=== PATIENT | male | born 1945 | race Caucasian/White ===

== ENCOUNTER → 2018-04-10 | Outpatient (CLI) | payer MEDICARE, OTHER ==
--- NOTE | 2018-04-10 10:43 | Diagnostic Imaging Report ---
INDICATION: CHRONIC OBSTRUCTIVE PULMONARY DISEASE COMPARISON: None. FINDINGS: Frontal and lateral radiographic views of the chest were obtained and show diffuse coarse prominence of the pulmonary interstitium. There are scattered more focal confluent opacities within both lower lung ryan. No large effusion or pneumothorax is seen on either side. Cardiac silhouette and pulmonary vasculature is within normal limits. Right-sided Port-A-Cath is noted with tip just below the cavoatrial junction. Bony structures show no gross acute abnormalities. IMPRESSION: 1. Diffuse coarse interstitial opacities, which may be on the basis of underlying chronic interstitial lung disease. 2. Few scattered patchy alveolar opacities within both lower lung ryan. There is no prior available for comparison. Findings may be chronic as well, but may also be on the basis of superimposed acute infiltrate. Followup is recommended. Dictated by: Dictated on workstation # [id number]
== END ==
LOC: RAD FS 10:09
PROVIDERS: ATTEND Family Medicine
DX: J44.9 Chronic obstructive pulmonary disease, unspecified (principal)
CPT/HCPCS: 71046

== ENCOUNTER 2018-08-20 18:23 | Emergency (ER) | payer MEDICARE, OTHER ==
[~2018-08-20] VITALS: Ht 167.6 cm; Wt 83.0 kg
[2018-08-20] MEDS ORDERED: morphine INJ 10 MG/ML 1ML (SYR OR VIAL) IVP STA (18:29)
[2018-08-20] MEDS ORDERED: ANTACID SUSP 30 ML UDC (MYLANTA) PO ONE (18:30)
[2018-08-20] MEDS ORDERED: ONDANSETRON 4 MG/2 ML (SDV) Z0FRAN IVP ONE (18:30)
--- NOTE | 2018-08-20 18:33 | ED General ---
General Stated Complaint: NAUSEA,CHEST PAIN,BACK PAIN History of Present Illness Date Seen by Provider: Aug 20, 2018 Time Seen by Provider: 18:33 Initial Comments Patient presenting to the emergency department for evaluation of chest pain abdominal pain and back pain that started this morning when he woke up at 7 that he said was mild but worsened persistently throughout today and now he says it is a 10 out of 10 and is causing him nausea. Patient had to call EMS. He appears uncomfortable but is nontoxic with no obvious ischemic changes on the EKG. 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 He denies any heart problems or heart failure. Allergies and Home Medications Allergies Coded Allergies: aztreonam (Unverified Adverse Reaction, Unknown, 08/20/18) piperacillin (Unverified Adverse Reaction, Unknown, 08/20/18) tazobactam (Unverified Adverse Reaction, Unknown, 08/20/18) Uncoded Allergies: CEFFEPIME (Adverse Reaction, Unknown, 08/20/18) MEROPENUM (Adverse Reaction, Unknown, 08/20/18) PENICILLIN (Adverse Reaction, Unknown, 08/20/18) Patient Home Medication List Home Medication List Reviewed: Yes Review of Systems Review of Systems Constitutional: no symptoms reported EENTM: no symptoms reported Respiratory: short of breath Cardiovascular: chest pain Gastrointestinal: abdominal pain, nausea; No vomiting Genitourinary: no symptoms reported Musculoskeletal: back pain Skin: no symptoms reported Psychiatric/Neurological: No Symptoms Reported All Other Systems Reviewed Negative Unless Noted: Yes Past Ufpikwk-Vgsfiw-Eohqad Hx Patient Social History Recent Foreign Travel: No Contact w/Someone Who Travel: No Physical Exam Vital Signs Vital Signs - First Documented Capillary Refill : Height, Weight, BMI Height: '" Weight: lbs. oz. kg; BMI Method: General Appearance: WD/WN, Moderate Distress Eyes: Bilateral Eye Normal Inspection HEENT: PERRL/EOMI Neck: Full Range of Motion, Supple Respiratory: Lungs Clear, No Respiratory Distress Cardiovascular: Regular Rate, Rhythm, No Edema, Tachycardia Gastrointestinal: Soft, Tenderness (across upper abdomen with no rebound or guarding) Back: Normal Inspection Extremity: Normal Capillary Refill Neurologic/Psychiatric: Alert, Oriented x3 Skin: Normal Color, Warm/Dry Progress/Results/Core Measures Suspected Sepsis SIRS Temperature: Pulse: Respiratory Rate: Laboratory Tests 08/20/18 18:35: White Blood Count 32.8*H Blood Pressure / Mean: Laboratory Tests 08/20/18 18:35: Creatinine 0.85, INR Comment 0.9, Platelet Count 411H, Total Bilirubin 0.3 Results/Orders Lab Results Laboratory Tests Test 08/20/18 18:35 08/20/18 18:52 Range/Units White Blood Count 32.8 *H 4.3-11.0 10^3/uL Red Blood Count 4.75 4.35-5.85 10^6/uL Hemoglobin 12.5 L 13.3-17.7 G/DL Hematocrit 41 40-54 % Mean Corpuscular Volume 87 80-99 FL Mean Corpuscular Hemoglobin 26 25-34 PG Mean Corpuscular Hemoglobin Concent 30 L 32-36 G/DL Red Cell Distribution Width 14.4 10.0-14.5 % Platelet Count 411 H 130-400 10^3/uL Mean Platelet Volume 9.9 7.4-10.4 FL Neutrophils (%) (Auto) 89 H 42-75 % Lymphocytes (%) (Auto) 4 L 12-44 % Monocytes (%) (Auto) 5 0-12 % Eosinophils (%) (Auto) 0 0-10 % Basophils (%) (Auto) 0 0-10 % Neutrophils # (Auto) 29.3 H 1.8-7.8 X 10^3 Lymphocytes # (Auto) 1.4 1.0-4.0 X 10^3 Monocytes # (Auto) 1.7 H 0.0-1.0 X 10^3 Eosinophils # (Auto) 0.1 0.0-0.3 10^3/uL Basophils # (Auto) 0.1 0.0-0.1 10^3/uL Neutrophils % (Manual) 88 % Lymphocytes % (Manual) 8 % Monocytes % (Manual) 3 % Eosinophils % (Manual) 0 % Basophils % (Manual) 0 % Band Neutrophils 1 % Prothrombin Time 12.8 12.2-14.7 SEC INR Comment 0.9 0.8-1.4 Activated Partial Thromboplast Time 25 24-35 SEC Sodium Level 136 135-145 MMOL/L Potassium Level 4.4 3.6-5.0 MMOL/L Chloride Level 96 L 98-107 MMOL/L Carbon Dioxide Level 29 21-32 MMOL/L Anion Gap 11 5-14 MMOL/L Blood Urea Nitrogen 16 7-18 MG/DL Creatinine 0.85 0.60-1.30 MG/DL Estimat Glomerular Filtration Rate > 60 BUN/Creatinine Ratio 19 Glucose Level 138 H 70-105 MG/DL Calcium Level 9.8 8.5-10.1 MG/DL Corrected Calcium 9.8 8.5-10.1 MG/DL Magnesium Level 1.9 1.8-2.4 MG/DL Total Bilirubin 0.3 0.1-1.0 MG/DL Aspartate Amino Transf (AST/SGOT) 17 5-34 U/L Alanine Aminotransferase (ALT/SGPT) 23 0-55 U/L Alkaline Phosphatase 71 40-136 U/L Troponin I < 0.30 <0.30 NG/ML Pro-B-Type Natriuretic Peptide 127.9 H <75.0 PG/ML Total Protein 7.9 6.4-8.2 GM/DL Albumin 4.0 3.2-4.5 GM/DL Lipase 45 8-78 U/L Urine Color YELLOW Urine Clarity CLEAR Urine pH 6.0 5-9 Urine Specific Olga 1.020 1.016-1.022 Urine Protein NEGATIVE NEGATIVE Urine Glucose (UA) NEGATIVE NEGATIVE Urine Ketones NEGATIVE NEGATIVE Urine Nitrite NEGATIVE NEGATIVE Urine Bilirubin NEGATIVE NEGATIVE Urine Urobilinogen 0.2 NORMAL MG/DL Urine Leukocyte Esterase NEGATIVE NEGATIVE Urine RBC (Auto) NEGATIVE NEGATIVE Urine RBC NONE /HPF Urine WBC RARE /HPF Urine Squamous Epithelial Cells NONE /HPF Urine Crystals NONE /LPF Urine Bacteria NEGATIVE /HPF Urine Casts NONE /LPF Urine Mucus SMALL H /LPF Urine Culture Indicated NO My Orders Orders - SHANTHI RICHARDS DO Cbc With Automated Diff (08/20/18 18:29) Comprehensive Metabolic Panel (08/20/18 18:29) Lipase (08/20/18 18:29) Magnesium (08/20/18 18:29) Partial Thromboplastin Time (08/20/18 18:29) Protime With Inr (08/20/18 18:29) Probnp Fs (08/20/18 18:29) Troponin I (08/20/18 18:29) Ua Culture If Indicated (08/20/18 18:29) Lactic Acid Analyzer (08/20/18 18:29) Ekg Tracing (08/20/18 18:29) Ondansetron Injection (Zofran Injectio (08/20/18 18:30) Morphine Injection (Morphine Injection (08/20/18 18:29) Antacid Suspension (Mylanta Suspension (08/20/18 18:30) Ct Anette Chest/Noang Abd-Pelv W (08/20/18 18:29) Aspirin Chewable Tablet (Baby Aspirin Ch (08/20/18 19:00) Manual Differential (08/20/18 18:35) Iohexol Injection (Omnipaque 350 Mg/Ml 1 (08/20/18 19:45) Received Contrast (Hold Metformin- Contr (08/20/18 19:45) Sodium Chloride Flush (Catheter Flush Sy (08/20/18 19:45) Ns (Ivpb) (Sodium Chloride 0.9% Ivpb Bag (08/20/18 19:45) Pantoprazole Injection (Protonix Injecti (08/20/18 20:00) Fentanyl Injection (Sublimaze Injection (08/20/18 20:00) Levofloxacin 750 Mg/150 Ml Iv (Levaquin (08/20/18 20:45) Blood Culture (08/20/18 20:47) Lactic Acid Analyzer (08/20/18 20:47) Medications Given in ED Current Medications Medications Dose Ordered Sig/Rae Route Start Time Stop Time Status Last Admin Dose Admin Al Hydrox/Mg Hydrox/Simethicone 30 ml ONCE ONCE PO 08/20/18 18:30 08/20/18 18:34 DC 08/20/18 18:41 30 ML Aspirin 324 mg ONCE ONCE PO 08/20/18 19:00 08/20/18 19:01 DC 08/20/18 19:18 324 MG Fentanyl Citrate 50 mcg ONCE ONCE IVP 08/20/18 20:00 08/20/18 20:01 DC 08/20/18 19:55 50 MCG Iohexol 150 ml ONCE ONCE IV 08/20/18 19:45 08/20/18 19:46 DC 08/20/18 19:43 125 ML Ondansetron HCl 4 mg ONCE ONCE IVP 08/20/18 18:30 08/20/18 18:34 DC 08/20/18 18:40 4 MG Pantoprazole 40 mg ONCE ONCE IV 08/20/18 20:00 08/20/18 20:01 DC 08/20/18 19:55 40 MG Sodium Chloride 10 ml NEEDED PRN IV 08/20/18 19:45 08/20/18 19:43 10 ML Sodium Chloride 100 ml ONCE ONCE IV 08/20/18 19:45 08/20/18 19:46 DC 08/20/18 19:43 80 ML Vital Signs/I&O 08/20/18 08/20/18 18:23 18:23 Temp 97.4 Pulse 91 Resp 20 B/P (MAP) 116/56 (76) Pulse Ox 95 O2 Delivery Nasal Cannula Nasal Cannula O2 Flow Rate 2.00 2.0 Capillary Refill : Progress Note : Progress Note Patient with a large differential at this time but there is no Audit Machine Operator criteria met. He will get labs and imaging treat symptoms and reassess. Patient worked up and has tachycardia with leukocytosis and an infectious source of lung. Technically he meets sepsis criteria say he was started on Levaquin. He is not meet any severe sepsis criteria as he is not hypotensive. I told patient he should be admitted to the hospital and he is requesting to go to [facility] as his travel registered nurse icu and follow him there. I spoke to [facility] and they were willing to accept patient. Patient's pain is improved and he appears to have normal vital signs except for mild tachycardia so he will be transferred in stable condition. Departure Impression Primary Impression: Sepsis Qualified Codes: A41.9 - Sepsis, unspecified organism Additional Impression: Pneumonia Qualified Codes: J18.9 - Pneumonia, unspecified organism Disposition: XFER SHT-TRM HOSP Condition: Stable Transfer Method of Transfer: EMS Departure-Patient Inst. Referrals: JOVANNA VALIENTE MD (PCP/Family) Primary Care Physician SHANTHI RICHARDS DO Aug 20, 2018 18:33
[2018-08-20 18:52] LABS: HEMATOCRIT 41 % (40-54); HEMOGLOBIN 12.5 G/DL (13.3-17.7); MEAN CORPUSCULAR HEMOGLOBIN 26 PG (25-34); MEAN CORPUSCULAR VOLUME 87 FL (80-99); WHITE BLOOD COUNT 32.8 10^3/uL (4.3-11.0)
[2018-08-20 18:53] LABS: BASOPHILS % (AUTO) 0 % (0-10); EOSINOPHILS # (AUTO) 0.1 10^3/uL (0.0-0.3); EOSINOPHILS % (AUTO) 0 % (0-10); LYMPHOCYTES # (AUTO) 1.4 X 10^3 (1.0-4.0); LYMPHOCYTES % (AUTO) 4 % (12-44); MEAN CORPUSCULAR HGB CONC 30 G/DL (32-36); MEAN PLATELET VOLUME 9.9 FL (7.4-10.4); MONOCYTES # (AUTO) 1.7 X 10^3 (0.0-1.0); MONOCYTES % (AUTO) 5 % (0-12); NEUTROPHILS # (AUTO) 29.3 X 10^3 (1.8-7.8); NEUTROPHILS % (AUTO) 89 % (42-75); PLATELET COUNT 411 10^3/uL (130-400); RED CELL DISTRIBUTION WIDTH 14.4 % (10.0-14.5)
[2018-08-20 18:54] LABS: BASOPHILS # (AUTO) 0.1 10^3/uL (0.0-0.1)
--- NOTE | 2018-08-20 18:55 | NUR ---
Report to Una SALAZAR.
[2018-08-20] MEDS ORDERED: ASPIRIN 81 MG CHEW (CHILDREN'S ASA) PO ONE (19:00)
[2018-08-20 19:04] LABS: INR 0.9 (0.8-1.4); PROTHROMBIN TIME PATIENT 12.8 SEC (12.2-14.7)
[2018-08-20 19:11] LABS: BAND NEUTROPHILS 1 %; BASOPHILS % (MANUAL) 0 %; EOSINOPHILS % (MANUAL) 0 %; LYMPHOCYTES % (MANUAL) 8 %; MONOCYTES % (MANUAL) 3 %; NEUTROPHILS % (MANUAL) 88 %
[2018-08-20 19:12] LABS: BUN/CREATININE RATIO 19; CALCIUM 9.8 MG/DL (8.5-10.1); CARBON DIOXIDE 29 MMOL/L (21-32); CHLORIDE 96 MMOL/L (98-107); CREATININE SERUM 0.85 MG/DL (0.60-1.30); GFR ESTIMATED > 60; GLUCOSE 138 MG/DL (70-105); MAGNESIUM 1.9 MG/DL (1.8-2.4); POTASSIUM 4.4 MMOL/L (3.6-5.0); SODIUM 136 MMOL/L (135-145)
[2018-08-20 19:13] LABS: ALANINE AMINOTRANSFERASE 23 U/L (0-55); ALKALINE PHOSPHATASE 71 U/L (40-136); BILIRUBIN,TOTAL 0.3 MG/DL (0.1-1.0); LIPASE 45 U/L (8-78); TOTAL PROTEIN 7.9 GM/DL (6.4-8.2)
[2018-08-20 19:27] LABS: BACTERIA,URINE NEGATIVE /HPF; BILIRUBIN,URINE NEGATIVE (NEGATIVE); CLARITY,URINE CLEAR; COLOR,URINE YELLOW; GLUCOSE, URINE (UA) NEGATIVE (NEGATIVE); KETONES,URINE NEGATIVE (NEGATIVE); LEUKOCYTE ESTERASE ,URINE NEGATIVE (NEGATIVE); NITRITE,URINE NEGATIVE (NEGATIVE); PROTEIN,URINE NEGATIVE (NEGATIVE); UROBILINOGEN,URINE 0.2 MG/DL (NORMAL); WBC,URINE RARE /HPF
[2018-08-20] MEDS ORDERED: NS 100 ML (IVPB) BAG IV ONE (19:45)
[2018-08-20] MEDS ORDERED: IOHEXOL 350 MG/ML 150 ML (OMNIPAQUE 350) VIAL IV ONE (19:45)
[2018-08-20] MEDS ORDERED: CATHETER FLUSH 10 ML SYR IV PRN (19:45)
[2018-08-20] MEDS ORDERED: HOLD METFORMIN - RECEIVED CONTRAST 20 ML VIAL IV SCH (19:45)
[2018-08-20] MEDS ORDERED: fentaNYL INJECTION 100 MCG/2 ML AMP IVP ONE (20:00)
[2018-08-20] MEDS ORDERED: PANTOPRAZOLE 40 MG (PROTONIX) VIAL IV ONE (20:00)
--- NOTE | 2018-08-20 20:27 | Diagnostic Imaging Report ---
INDICATION: Shortness of breath. TECHNIQUE: Pre-and postcontrast axial imaging of the chest was performed utilizing CT angiography protocol. Post contrast axial imaging of the abdomen and pelvis was also performed. Multiplanar 3D and MIP reformations are also performed. CT ANGIOGRAM CHEST: The thoracic aorta is normal caliber. No dissection is seen. Pulmonary arterial system is without thromboembolism. No filling defects are seen within central, lobar or segmental branches. There is some parenchymal consolidation in the right middle lobe and lingula with some associated bronchiectasis. There is bilateral lower lobe consolidation as well, left greater with associated bronchiectasis. Interlobular septal thickening is seen throughout both lungs, as well. No discrete mass is identified. No definite pericardial or pleural fluid is seen. No axillary lymphadenopathy is identified. Mildly prominent lymph nodes in the mediastinum right paratracheal and subcarinal regions noted. Sharona are unremarkable. IMPRESSION: 1. No evidence of pulmonary embolism or thoracic aortic dissection. 2. Bilateral infiltrates with associated bronchiectasis, as described. There are generalized interstitial changes which may be chronic. CT ABDOMEN AND PELVIS: There is generalized low density throughout the liver consistent with hepatic abscesses. No discrete liver mass is seen. Gallbladder appears to be surgically absent. There is no biliary ductal dilatation. There is some questionable inflammatory stranding adjacent to the pancreatic head and second portion of the duodenum. There is normal enhancement to the pancreas. No peripancreatic fluid collection is seen. The spleen is unremarkable. No adrenal mass is seen. The kidneys are without hydronephrosis. Aorta is non-aneurysmal. Bowel loops are normal caliber. There is no obstruction. There is diverticulosis of the sigmoid but no evidence of acute diverticulitis. The prostate is enlarged. The bladder is diffusely thick-walled. IMPRESSION: 1. Hepatic steatosis. 2. Uncomplicated diverticulosis. 3. Mild inflammatory changes adjacent to the pancreatic head and second portion of the duodenum. This could be owing to focal pancreatitis versus peptic ulcer disease. Correlation with amylase and lipase levels would be useful. No peripancreatic fluid collection or pseudocyst is seen. 4. Prostatomegaly. Dictated by: Dictated on workstation # [id number]
[2018-08-20] MEDS ORDERED: LEVOFLOXACIN 750 MG/150 ML IV 150 ML IV ONE (20:45)
[2018-08-20] MEDS ORDERED: CODE118S4 (21:02)
[2018-08-20] MEDS ORDERED: COLE1TAB (21:02)
[2018-08-20] MEDS ORDERED: RANI150T11 (21:02)
[2018-08-20] MEDS ORDERED: UMEC62.5 (21:02)
[2018-08-20] MEDS ORDERED: SERT50TA9 (21:02)
[2018-08-20] MEDS ORDERED: PRD10T (21:02)
[2018-08-20] MEDS ORDERED: SODI4VIA (21:02)
[2018-08-20 22:25] VITALS: BP 110/56
--- NOTE | 2018-08-20 22:25 | NUR ---
ems here for transport
--- OUTSIDE RECORDS SUMMARY | 2018-08-21 02:04 | XMS REPORT | Continuity of Care Document ---
Author Organization Unknown Address Unknown Allergies Active Description Code Type Severity Reaction Onset Reported/Identified Relationship to Patient Clinical Status Yes aztreonam [id number] Drug Allergy Unknown N/A 08/20/2018 Yes CEFFEPIME CEFFEPIME Unknown N/A 08/20/2018 Yes MEROPENUM MEROPENUM Unknown N/A 08/20/2018 Yes No Known Drug Allergies [id number] Drug Allergy Unknown N/A 08/20/2018 Yes PENICILLIN PENICILLIN Unknown N/A 08/20/2018 Yes piperacillin [id number] Drug Allergy Unknown N/A 08/20/2018 Yes tazobactam [id number] Drug Allergy Unknown N/A 08/20/2018 Medications There is no data. Problems Date Dx Coded Attending Type Code Diagnosis Diagnosed By 01/30/2013 NOEL SOMMER MD Ot 494.0 BRONCHIECTASIS W/O ACUTE EXACERBATION 05/01/2013 NOEL SOMMER MD Ot 494.0 BRONCHIECTASIS W/O ACUTE EXACERBATION 04/10/2018 Ot 494.0 BRONCHIECTASIS W/O ACUTE EXACERBATION 05/04/2018 ROCCO MCKEON, JOVANNA Coronado Ot J44.9 CHRONIC OBSTRUCTIVE PULMONARY DISEASE, U 08/20/2018 Ot 494.0 BRONCHIECTASIS W/O ACUTE EXACERBATION 08/20/2018 Ot 494.0 BRONCHIECTASIS W/O ACUTE EXACERBATION 08/20/2018 Ot 494.0 BRONCHIECTASIS W/O ACUTE EXACERBATION Procedures There is no data. Results Test Result Range Complete blood count (CBC) with automated white blood cell (WBC) differential - 08/20/18 18:35 Blood leukocytes automated count (number/volume) 32.8 10*3/uL 4.3-11.0 Blood erythrocytes automated count (number/volume) 4.75 10*6/uL 4.35-5.85 Venous blood hemoglobin measurement (mass/volume) 12.5 g/dL 13.3-17.7 Blood hematocrit (volume fraction) 41 % 40-54 Automated erythrocyte mean corpuscular volume 87 [foz_us] 80-99 Automated erythrocyte mean corpuscular hemoglobin (mass per erythrocyte) 26 pg 25-34 Automated erythrocyte mean corpuscular hemoglobin concentration measurement (mass/volume) 30 g/dL 32-36 Automated erythrocyte distribution width ratio 14.4 % 10.0- 14.5 Automated blood platelet count (count/volume) 411 10*3/uL 130-400 Automated blood platelet mean volume measurement 9.9 [foz_us] 7.4-10.4 Automated blood neutrophils/100 leukocytes 89 % 42-75 Automated blood lymphocytes/100 leukocytes 4 % 12-44 Blood monocytes/100 leukocytes 5 % 0-12 Automated blood eosinophils/100 leukocytes 0 % 0-10 Automated blood basophils/100 leukocytes 0 % 0-10 Blood neutrophils automated count (number/volume) 29.3 10*3 1.8-7.8 Blood lymphocytes automated count (number/volume) 1.4 10*3 1.0-4.0 Blood monocytes automated count (number/volume) 1.7 10*3 0.0- 1.0 Automated eosinophil count 0.1 10*3/uL 0.0-0.3 Automated blood basophil count (count/volume) 0.1 10*3/uL 0.0-0.1 PT panel in platelet poor plasma by coagulation assay - 08/20/18 18:35 Prothrombin time (PT) in platelet poor plasma by coagulation assay 12.8 s 12.2-14.7 INR in platelet poor plasma or blood by coagulation assay 0.9 0.8-1.4 Activated partial thromboplastin time (aPTT) in platelet poor plasma bycoagulation assay - 08/20/18 18:35 Activated partial thromboplastin time (aPTT) in platelet poor plasma bycoagulation assay 25 s 24-35 Manual absolute plasma cell count - 08/20/18 18:35 Blood monocytes/100 leukocytes 3 % NRG Manual blood segmented neutrophils/100 leukocytes 88 % NRG Blood band neutrophils/100 leukocytes 1 % NRG Manual blood lymphocytes/100 leukocytes 8 % NRG Manual eosinophils/100 leukocytes in nose 0 % NRG Manual blood basophils/100 leukocytes 0 % NRG Comprehensive metabolic panel - 08/20/18 18:35 Serum or plasma sodium measurement (moles/volume) 136 mmol/L 135-145 Serum or plasma potassium measurement (moles/volume) 4.4 mmol/L 3.6-5.0 Serum or plasma chloride measurement (moles/volume) 96 mmol/L 98-107 Carbon dioxide 29 mmol/L 21-32 Serum or plasma anion gap determination (moles/volume) 11 mmol/L 5-14 Serum or plasma urea nitrogen measurement (mass/volume) 16 mg/dL 7-18 Serum or plasma creatinine measurement (mass/volume) 0.85 mg/dL 0.60-1.30 Serum or plasma urea nitrogen/creatinine mass ratio 19 NRG Serum or plasma creatinine measurement with calculation of estimated glomerular filtration rate > NRG Serum or plasma glucose measurement (mass/volume) 138 mg/dL 70-105 Serum or plasma calcium measurement (mass/volume) 9.8 mg/dL 8.5-10.1 Serum or plasma total bilirubin measurement (mass/volume) 0.3 mg/dL 0.1-1.0 Serum or plasma alkaline phosphatase measurement (enzymatic activity/volume) 71 U/L 40-136 Serum or plasma aspartate aminotransferase measurement (enzymatic activity/volume) 17 U/L 5-34 Serum or plasma alanine aminotransferase measurement (enzymatic activity/volume) 23 U/L 0-55 Serum or plasma protein measurement (mass/volume) 7.9 g/dL 6.4-8.2 Serum or plasma albumin measurement (mass/volume) 4.0 g/dL 3.2-4.5 CALCIUM CORRECTED 9.8 mg/dL 8.5-10.1 Magnesium - 08/20/18 18:35 Magnesium 1.9 mg/dL 1.8-2.4 Serum or plasma troponin i.cardiac measurement (mass/volume) - 08/20/18 18:35 Serum or plasma troponin i.cardiac measurement (mass/volume) < ng/mL <0.30 PROBNP FS - 08/20/18 18:35 PROBNP FS 127.9 pg/mL <75.0 Lipase - 08/20/18 18:35 Lipase 45 U/L 8-78 Complete urinalysis with reflex to culture - 08/20/18 18:52 Urine color determination YELLOW NRG Urine clarity determination CLEAR NRG Urine pH measurement by test strip 6.0 5-9 Specific gravity of urine by test strip 1.020 1.016-1.022 Urine protein assay by test strip, semi-quantitative NEGATIVE NEGATIVE Urine glucose detection by automated test strip NEGATIVE NEGATIVE Erythrocytes detection in urine sediment by light microscopy NEGATIVE NEGATIVE Urine ketones detection by automated test strip NEGATIVE NEGATIVE Urine nitrite detection by test strip NEGATIVE NEGATIVE Urine total bilirubin detection by test strip NEGATIVE NEGATIVE Urine urobilinogen measurement by automated test strip (mass/volume) 0.2 mg/dL NORMAL Urine leukocyte esterase detection by dipstick NEGATIVE NEGATIVE Automated urine sediment erythrocyte count by microscopy (number/high power field) NONE NRG Automated urine sediment leukocyte count by microscopy (number/high power field) RARE NRG Bacteria detection in urine sediment by light microscopy NEGATIVE NRG Squamous epithelial cells detection in urine sediment by light microscopy NONE NRG Crystals detection in urine sediment by light microscopy NONE NRG Casts detection in urine sediment by light microscopy NONE NRG Mucus detection in urine sediment by light microscopy SMALL NRG Complete urinalysis with reflex to culture NO NRG Blood lactic acid measurement (moles/volume) - 08/20/18 20:55 Blood lactic acid measurement (moles/volume) 0.94 mmol/L 0.50- 2.00 Encounters ACCT No. Visit Date/Time Discharge Status Pt. Type Provider Facility Loc./Unit Complaint [id number] 07/24/2018 14:30:00 07/24/2018 23:59:59 CLS Outpatient JOVANNA VALIENTE [facility] [id number] 04/10/2018 10:09:00 04/10/2018 23:59:59 CLS Outpatient JOVANNA VALIENTE MD [facility] RAD FS CHRONIC OBSTRUCTIVE PULMONARY DISEASE [id number] 04/02/2013 10:00:00 05/01/2013 00:01:00 DIS Outpatient NOEL SOMMER MD [facility] PULM BRONCHIECTASIS [id number] 01/22/2013 10:00:00 01/30/2013 00:01:00 DIS Outpatient NOEL SOMMER MD [facility] PULM BRONCHIECTASIS [id number] 08/20/2018 18:29:00 ACT Emergency SHANTHI RICHARDS DO [facility] ER FS NAUSEA,CHEST PAIN,BACK PAIN [id number] 05/02/2013 15:00:00 Document Registration
== END 2018-08-20 22:25 | disposition short-term general hospital (02) ==
LOC: EDUNIT# 18:27 → ER FS 18:29
DX: A41.9 Sepsis, unspecified organism (principal); J18.9 Pneumonia, unspecified organism; J44.9 Chronic obstructive pulmonary disease, unspecified; Z88.0 Allergy status to penicillin; Z88.1 Allergy status to other antibiotic agents
CPT/HCPCS: 36415; 71275; 74177; 80053; 81000; 83605; 83690; 83735; 83880; 84484; 85007; 85027; 85610; 85730; 87040; 93005

== ENCOUNTER 2018-09-08 12:55 | Emergency (ER) | payer MEDICARE, OTHER ==
[~2018-09-08] VITALS: Ht 167.6 cm; Wt 83.0 kg
[~2018-09-08 12:55] MED LIST: CODE118S4; COLE1TAB; PRD10T; RANI150T11; SERT50TA9; SODI4VIA; UMEC62.5
--- OUTSIDE RECORDS SUMMARY | 2018-09-08 13:00 | XMS REPORT | Continuity of Care Document ---
Author Organization Unknown Address Unknown Allergies Active Description Code Type Severity Reaction Onset Reported/Identified Relationship to Patient Clinical Status Yes aztreonam [id number] Drug Allergy Unknown N/A 08/20/2018 Yes CEFFEPIME CEFFEPIME Unknown N/A 08/20/2018 Yes MEROPENUM MEROPENUM Unknown N/A 08/20/2018 Yes No Known Drug Allergies [id number] Drug Allergy Unknown N/A 08/20/2018 Yes PENICILLIN PENICILLIN Unknown N/A 08/20/2018 Yes piperacillin [id number] Drug Allergy Unknown N/A 08/20/2018 Yes tazobactam [id number] Drug Allergy Unknown N/A 08/20/2018 Medications There is no data. Problems Date Dx Coded Attending Type Code Diagnosis Diagnosed By 01/30/2013 NOEL SOMMER MD Ot 494.0 BRONCHIECTASIS W/O ACUTE EXACERBATION 05/01/2013 NOEL SOMMER MD Ot 494.0 BRONCHIECTASIS W/O ACUTE EXACERBATION 04/10/2018 Ot 494.0 BRONCHIECTASIS W/O ACUTE EXACERBATION 05/04/2018 ROCCO MCKEON, JOVANNA [place] Ot J44.9 CHRONIC OBSTRUCTIVE PULMONARY DISEASE, U 08/20/2018 Ot 494.0 BRONCHIECTASIS W/O ACUTE EXACERBATION 08/20/2018 Ot 494.0 BRONCHIECTASIS W/O ACUTE EXACERBATION 08/20/2018 Ot 494.0 BRONCHIECTASIS W/O ACUTE EXACERBATION 08/20/2018 SHANTHI RICHARDS DO Ot A41.9 SEPSIS, UNSPECIFIED ORGANISM 08/20/2018 SHANTHI RICHARDS DO Ot J18.9 PNEUMONIA, UNSPECIFIED ORGANISM 08/20/2018 SHANTHI RICHARDS DO Ot J44.9 CHRONIC OBSTRUCTIVE PULMONARY DISEASE, U 08/20/2018 SHANTHI RICHARDS DO Ot R10.9 UNSPECIFIED ABDOMINAL PAIN 08/20/2018 SHANTHI RICHARDS DO Ot Z88.0 ALLERGY STATUS TO PENICILLIN 08/20/2018 SHANTHI RICHARDS DO Ot Z88.1 ALLERGY STATUS TO OTHER ANTIBIOTIC AGENT 08/22/2018 SHANTHI RICHARDS DO Ot A41.9 SEPSIS, UNSPECIFIED ORGANISM 08/22/2018 SHANTHI RICHARDS DO Ot J18.9 PNEUMONIA, UNSPECIFIED ORGANISM 08/22/2018 SHANTHI RICHARDS DO Ot J44.9 CHRONIC OBSTRUCTIVE PULMONARY DISEASE, U 08/22/2018 SHANTHI RICHARDS DO Ot R10.9 UNSPECIFIED ABDOMINAL PAIN 08/22/2018 SHANTHI RICHARDS DO Ot Z88.0 ALLERGY STATUS TO PENICILLIN 08/22/2018 SHANTHI RICHARDS DO Ot Z88.1 ALLERGY STATUS TO OTHER ANTIBIOTIC AGENT 08/29/2018 Ot 494.0 BRONCHIECTASIS W/O ACUTE EXACERBATION 08/29/2018 ROCCO MCKEON, JOVANNA Coronado Ot J44.9 CHRONIC OBSTRUCTIVE PULMONARY DISEASE, U Procedures There is no data. Results Test [...] acid measurement (moles/volume) 0.94 mmol/L 0.50- 2.00 Bacterial blood culture - 08/20/18 20:55 Bacterial blood culture NG NRG Bacterial blood culture - 08/20/18 21:27 Bacterial blood culture NG NRG Encounters ACCT No. Visit Date/Time Discharge Status Pt. Type Provider Facility Loc./Unit Complaint [id number] 09/06/2018 14:15:00 ACT [facility] [id number] 08/20/2018 18:29:00 08/20/2018 22:25:00 DIS Emergency SHANTHI RICHARDS DO [facility] ER FS NAUSEA,CHEST PAIN,BACK PAIN [id number] 04/10/2018 10:09:00 04/10/2018 23:59:59 CLS Outpatient JOVANNA VALIENTE MD [facility] RAD FS CHRONIC OBSTRUCTIVE PULMONARY DISEASE [id number] 04/02/2013 10:00:00 05/01/2013 00:01:00 DIS Outpatient NOEL SOMMER MD [facility] PULM BRONCHIECTASIS [id number] 01/22/2013 10:00:00 01/30/2013 00:01:00 DIS Outpatient NOEL SOMMER MD [facility] PULM BRONCHIECTASIS [id number] 05/02/2013 15:00:00 Document Registration
--- NOTE | 2018-09-08 13:14 | ED General ---
General Stated Complaint: BACK/STOMACH PAIN,NAUSEA Source of Information: Patient History of Present Illness Date Seen by Provider: Sep 08, 2018 Time Seen by Provider: 13:00 Initial Comments Patient is a 73-year-old male with history of COPD, home O2 dependent who was released released from [facility] 2 weeks ago for treatment of pneumonia who presents with progressive shortness of breath, nonproductive cough, nausea and back pain. Symptoms began approximately 3 days ago and gradual ly progress. Patient was evaluated by his PCP when symptoms first began was started on Levaquin. Reports chills, denies fever and sweats. States symptoms still similar recent diagnosis of pneumonia. No other acute symptoms or complaints. Timing/Duration: 3-4 Days Modifying Factors: improves with Other Associated Systoms: Malaise, Nausea/Vomiting, Shortness of Air, Weakness Allergies and Home Medications Allergies Coded Allergies: aztreonam (Unverified Adverse Reaction, Unknown, 08/20/18) piperacillin (Unverified Adverse Reaction, Unknown, 08/20/18) tazobactam (Unverified Adverse Reaction, Unknown, 08/20/18) Uncoded Allergies: CEFFEPIME (Adverse Reaction, Unknown, 08/20/18) MEROPENUM (Adverse Reaction, Unknown, 08/20/18) PENICILLIN (Adverse Reaction, Unknown, 08/20/18) Patient Home Medication List Home Medication List Reviewed: Yes Review of Systems Review of Systems Constitutional: see HPI EENTM: see HPI Cardiovascular: see HPI Genitourinary: see HPI Musculoskeletal: see HPI Skin: see HPI Psychiatric/Neurological: See HPI Hematologic/Lymphatic: See HPI Immunological/Allergic: see HPI Past Mammlbo-Hdunbh-Lyefhh Hx Past Med/Social Hx: Reviewed Nursing Past Med/Soc Hx Patient Social History Former Smoker, Quit: Feb 20, 2001 2nd Hand Smoke Exposure: No Recent Hopitalizations: No Immunizations Up To Date Tetanus Booster (TDap): Less than 5yrs Date of Pneumonia Vaccine: May 29, 2014 Date of Influenza Vaccine: Nov 26, 2017 Seasonal Allergies Seasonal Allergies: No Past Medical History Surgeries: Yes (EGD, Colonoscopy, RMVL lung xcp tot pneumonectomy sleeve lobectomy) Respiratory: Yes (O depend., Pseudomonas in lungs by hx, chronic resp failure) Pneumonia, COPD Cardiac: Yes (Tachycardia, Ablation Ventricular Arrhythmia) Irregular Heartbeat Neurological: Yes Headaches /Migraines Genitourinary: Yes (Hx hematuria) Gastrointestinal: Yes Gastroesophageal Reflux, Esophagitis Musculoskeletal: No Endocrine: Yes ([place]'s syndrome, Type 2 DM, ) Diabetes, Non-Insulin dep Cancer: No Psychosocial: No Integumentary: No Blood Disorders: Yes (Anemia) Physical Exam Vital Signs Vital Signs - First Documented 09/08/18 13:00 Temp 98.2 Pulse 109 Resp 22 B/P (MAP) 140/70 (93) Pulse Ox 91 O2 Delivery Nasal Cannula O2 Flow Rate 4.00 Capillary Refill : Height, Weight, BMI Height: 5'6.00" Weight: 183lbs. oz. 83.554272tk; BMI Method:Stated General Appearance: Anxious, Chronically ill HEENT: PERRL/EOMI, TMs Normal, Pharynx Normal Neck: Normal Inspection, Non Tender, Supple Respiratory: Decreased Breath Sounds, Rales, Rhonci, Other (course breath sounds bilaterally, diminished in bases, mild tachypnea,) Cardiovascular: Regular Rate, Rhythm, No Edema Gastrointestinal: Normal Bowel Sounds Back: Normal Inspection, No CVA Tenderness Extremity: Normal Capillary Refill, Normal Inspection Neurologic/Psychiatric: Alert, Oriented x3 Focused Exam Lactate Level 09/08/18 13:30: Lactic Acid Level 1.69 Lactic Acid Level Laboratory Tests Test 09/08/18 13:30 Lactic Acid Level 1.69 MMOL/L (0.50-2.00) Progress/Results/Core Measures Suspected Sepsis SIRS Temperature: Pulse: Respiratory Rate: Laboratory Tests 09/08/18 13:20: White Blood Count 25.0H Blood Pressure / Mean: 09/08/18 13:30: Lactic Acid Level 1.69 Laboratory Tests 09/08/18 13:20: Platelet Count 318 09/08/18 13:30: Creatinine 0.94, Total Bilirubin 0.3 Results/Orders Lab Results Laboratory Tests Test 09/08/18 13:20 09/08/18 13:30 09/08/18 13:43 Range/Units White Blood Count 25.0 H 4.3-11.0 10^3/uL Red Blood Count 4.78 4.35-5.85 10^6/uL Hemoglobin 12.7 L 13.3-17.7 G/DL Hematocrit 42 40-54 % Mean Corpuscular Volume 87 80-99 FL Mean Corpuscular Hemoglobin 27 25-34 PG Mean Corpuscular Hemoglobin Concent 31 L 32-36 G/DL Red Cell Distribution Width 14.9 H 10.0-14.5 % Platelet Count 318 130-400 10^3/uL Mean Platelet Volume 10.1 7.4-10.4 FL Neutrophils (%) (Auto) 94 H 42-75 % Lymphocytes (%) (Auto) 3 L 12-44 % Monocytes (%) (Auto) 2 0-12 % Eosinophils (%) (Auto) 0 0-10 % Basophils (%) (Auto) 0 0-10 % Neutrophils # (Auto) 23.5 H 1.8-7.8 X 10^3 Lymphocytes # (Auto) 0.7 L 1.0-4.0 X 10^3 Monocytes # (Auto) 0.6 0.0-1.0 X 10^3 Eosinophils # (Auto) 0.0 0.0-0.3 10^3/uL Basophils # (Auto) 0.0 0.0-0.1 10^3/uL Neutrophils % (Manual) 94 % Lymphocytes % (Manual) 1 % Monocytes % (Manual) 4 % Eosinophils % (Manual) 0 % Basophils % (Manual) 0 % Band Neutrophils 1 % Blood Morphology Comment NORMAL D-Dimer 0.39 0.00-0.49 UG/ML Sodium Level 136 135-145 MMOL/L Potassium Level 4.7 3.6-5.0 MMOL/L Chloride Level 95 L 98-107 MMOL/L Carbon Dioxide Level 28 21-32 MMOL/L Anion Gap 13 5-14 MMOL/L Blood Urea Nitrogen 18 7-18 MG/DL Creatinine 0.94 0.60-1.30 MG/DL Estimat Glomerular Filtration Rate > 60 BUN/Creatinine Ratio 19 Glucose Level 200 H 70-105 MG/DL Lactic Acid Level 1.69 0.50-2.00 MMOL/L Calcium Level 9.7 8.5-10.1 MG/DL Corrected Calcium 9.9 8.5-10.1 MG/DL Total Bilirubin 0.3 0.1-1.0 MG/DL Aspartate Amino Transf (AST/SGOT) 12 5-34 U/L Alanine Aminotransferase (ALT/SGPT) 18 0-55 U/L Alkaline Phosphatase 73 40-136 U/L Troponin I < 0.30 <0.30 NG/ML Pro-B-Type Natriuretic Peptide 67.3 <75.0 PG/ML Total Protein 7.5 6.4-8.2 GM/DL Albumin 3.8 3.2-4.5 GM/DL Blood Gas Puncture Site RT RAD Blood Gas Patient Temperature 98.2 Arterial Blood pH 7.42 7.37-7.43 Arterial Blood Partial Pressure CO2 46 H 35-45 MMHG Arterial Blood Partial Pressure O2 102 H 79-93 MMHG Arterial Blood HCO3 30 H 23-27 MMOL/L Arterial Blood Total CO2 31.0 21.0-31.0 MMOL/L Arterial Blood Oxygen Saturation 98 94-100 % Arterial Blood Base Excess 4.6 H -2.5-2.5 MMOL/L Toni Test YES-POS Blood Gas Ventilator Setting NO Blood Gas Inspired Oxygen 4L My Orders Mary - BRENNEN VERDIN DO Cbc With Automated Diff (09/08/18 13:06) Comprehensive Metabolic Panel (09/08/18 13:06) Troponin I (09/08/18 13:06) Probnp Fs (09/08/18 13:06) Chest 1 View Ap/Pa Only (09/08/18 13:06) Lactic Acid Analyzer (09/08/18 13:06) Arterial Blood Gas (09/08/18 13:06) Blood Culture (09/08/18 13:06) Fibrin Degradation Products (09/08/18 13:06) Fentanyl Injection (Sublimaze Injection (09/08/18 13:15) Ondansetron Injection (Zofran Injectio (09/08/18 13:15) Methylprednisolone Sod Succ (Solu-Medrol (09/08/18 13:15) Ua Culture If Indicated (09/08/18 13:14) Manual Differential (09/08/18 13:20) Vancomycin Injection (Vancomycin Injecti (09/08/18 14:00) Meropenem (Merrem 1000 Mg) (09/08/18 14:00) Vancomycin Injection (Vancomycin Injecti (09/08/18 14:08) Meropenem (Merrem 500 Mg) (09/08/18 14:09) Ns (Ivpb) (Sodium Chloride 0.9%) (09/08/18 14:09) Water (Sterile) For Injection (Sterile W (09/08/18 14:11) Albuterol/Ipra Inhalation Soln (Duoneb I (09/08/18 15:30) Svn Small Volume Nebulizer (09/08/18 15:24) Medications Given in ED Current Medications Medications Dose Ordered Sig/Rae Route Start Time Stop Time Status Last Admin Dose Admin Fentanyl Citrate 50 mcg ONCE ONCE IVP 09/08/18 13:15 09/08/18 13:16 DC 09/08/18 14:23 50 MCG Meropenem 1000 mg/ Sterile Water 20 ml @ 240 mls/hr ONCE ONCE IV 09/08/18 14:00 09/08/18 14:04 DC 09/08/18 14:28 240 MLS/HR Methylprednisolone Sodium Succinate 62.5 mg ONCE ONCE IVP 09/08/18 13:15 09/08/18 13:16 DC 09/08/18 14:22 62.5 MG Ondansetron HCl 4 mg ONCE ONCE IVP 09/08/18 13:15 09/08/18 13:16 DC 09/08/18 14:23 4 MG Vital Signs/I&O 09/08/18 13:00 Temp 98.2 Pulse 109 Resp 22 B/P (MAP) 140/70 (93) Pulse Ox 91 O2 Delivery Nasal Cannula O2 Flow Rate 4.00 Capillary Refill : Departure Communication (Admissions) EKG, labs, chest x-ray are reviewed. Chest x-ray concerning for multilobar hospital-acquired pneumonia. Patient started on vancomycin and barium. IV fluid bolus given. Respiratory status stable. Vital signs remained stable. Breathing treatment, steroids given for underlying COPD. Dr. Rivas accepts patient to [facility]. Impression Primary Impression: HCAP (healthcare-associated pneumonia) Additional Impressions: COPD exacerbation Chronic respiratory failure Disposition: T-TRM HOSP Condition: Stable Departure-Patient Inst. Referrals: JOVANNA VALIENTE MD (PCP/Family) Primary Care Physician BRENNEN VERDIN DO Sep 08, 2018 13:14
[2018-09-08] MEDS ORDERED: fentaNYL INJECTION 100 MCG/2 ML AMP IVP ONE (13:15)
[2018-09-08] MEDS ORDERED: ONDANSETRON 4 MG/2 ML (SDV) Z0FRAN IVP ONE (13:15)
[2018-09-08] MEDS ORDERED: methylPREDNISolone 125 MG (Solu-MEDROL) VIAL IVP ONE (13:15)
[2018-09-08 13:31] LABS: HEMATOCRIT 42 % (40-54); HEMOGLOBIN 12.7 G/DL (13.3-17.7); MEAN CORPUSCULAR HEMOGLOBIN 27 PG (25-34); MEAN CORPUSCULAR VOLUME 87 FL (80-99)
[2018-09-08 13:32] LABS: BASOPHILS % (AUTO) 0 % (0-10); EOSINOPHILS % (AUTO) 0 % (0-10); LYMPHOCYTES # (AUTO) 0.7 X 10^3 (1.0-4.0); LYMPHOCYTES % (AUTO) 3 % (12-44); MEAN CORPUSCULAR HGB CONC 31 G/DL (32-36); MEAN PLATELET VOLUME 10.1 FL (7.4-10.4); MONOCYTES # (AUTO) 0.6 X 10^3 (0.0-1.0); MONOCYTES % (AUTO) 2 % (0-12); NEUTROPHILS # (AUTO) 23.5 X 10^3 (1.8-7.8); NEUTROPHILS % (AUTO) 94 % (42-75); PLATELET COUNT 318 10^3/uL (130-400); RED CELL DISTRIBUTION WIDTH 14.9 % (10.0-14.5)
[2018-09-08 13:53] LABS: ABG BASE EXCESS 4.6 MMOL/L (-2.5-2.5); ABG OXYGEN SATURATION 98 % (94-100); ABG PCO2 46 MMHG (35-45); ABG PH 7.42 (7.37-7.43); ABG PO2 102 MMHG (79-93); ALLENS TEST YES-POS; INSPIRED O2 4L; PATIENT TEMP 98.2; VENTILATOR NO
[2018-09-08] MEDS ORDERED: MEROPENEM 1,000 MG in WATER (STERILE) FOR INJECTION 20 ML IV ONE (14:00)
[2018-09-08 14:03] LABS: BAND NEUTROPHILS 1 %; BASOPHILS % (MANUAL) 0 %; EOSINOPHILS % (MANUAL) 0 %; LYMPHOCYTES % (MANUAL) 1 %; MONOCYTES % (MANUAL) 4 %; NEUTROPHILS % (MANUAL) 94 %; RBC MORPH NORMAL
[2018-09-08] MEDS ORDERED: VANCOMYCIN 1000 MG/VIAL ONE (14:08)
[2018-09-08] MEDS ORDERED: MEROPENEM 500 MG VIAL (MERREM) IV ONE (14:09)
[2018-09-08] MEDS ORDERED: NS (IVPB) 250 ML ONE (14:09)
[2018-09-08] MEDS ORDERED: WATER (STERILE) FOR INJECTION 20 ML ONE (14:11)
[2018-09-08 14:15] LABS: ALANINE AMINOTRANSFERASE 18 U/L (0-55); ALKALINE PHOSPHATASE 73 U/L (40-136); BILIRUBIN,TOTAL 0.3 MG/DL (0.1-1.0); BUN/CREATININE RATIO 19; CALCIUM 9.7 MG/DL (8.5-10.1); CARBON DIOXIDE 28 MMOL/L (21-32); CHLORIDE 95 MMOL/L (98-107); CREATININE SERUM 0.94 MG/DL (0.60-1.30); GFR ESTIMATED > 60; GLUCOSE 200 MG/DL (70-105); POTASSIUM 4.7 MMOL/L (3.6-5.0); SODIUM 136 MMOL/L (135-145)
[2018-09-08 14:16] LABS: ALBUMIN 3.8 GM/DL (3.2-4.5); TOTAL PROTEIN 7.5 GM/DL (6.4-8.2)
[2018-09-08] MEDS: VANCOMYCIN INJECTION 1,000 MG in NS (IVPB) 250 ML IV SCH ×2 (14:54→15:01)
--- NOTE | 2018-09-08 14:59 | Diagnostic Imaging Report ---
EXAMINATION: Chest one view 220h. INDICATION: Shortness of breath The heart size is within normal limits and stable when compared to 04/10/2018. As seen on the prior study there are coarse interstitial densities involving both lung bases particularly the left lung base. These findings are quite similar to the prior exam and consequently may well be chronic in nature. There are also small nodular densities in both lower lobes and these seen similar to the prior exam as well. The upper lungs are clear. The mediastinum is not widened. The osseous structures are intact. The right-sided Port-A-Cath seen previously again evident and no different. IMPRESSION: Stable chest. There has been no significant change since the prior exam. Dictated by: Dictated on workstation # [id number]
[2018-09-08] MEDS ORDERED: RT-ALBUTEROL/IPRATROPIUM 3 ML (DUONEB) VIAL INH ONE (15:30)
[2018-09-08 15:39] LABS: CLARITY,URINE CLEAR; COLOR,URINE YELLOW
[2018-09-08 15:40] LABS: BILIRUBIN,URINE NEGATIVE (NEGATIVE); GLUCOSE, URINE (UA) NEGATIVE (NEGATIVE); KETONES,URINE NEGATIVE (NEGATIVE); LEUKOCYTE ESTERASE ,URINE NEGATIVE (NEGATIVE); NITRITE,URINE NEGATIVE (NEGATIVE); PROTEIN,URINE NEGATIVE (NEGATIVE); SQUAMOUS EPITHELIAL CELL,UR RARE /HPF; UROBILINOGEN,URINE 0.2 MG/DL (NORMAL)
[2018-09-08] MEDS ORDERED: LEVO750T39 (15:49)
--- NOTE | 2018-09-08 16:30 | NUR ---
Called to [facility] @ [facility] on [address].. inquired delay of a few hrs and patient/staff wanting update. Report that a bed being opened up currently by a discharge. Pt transfer is being ok'd as they will stat clean room. Please call when departing ER.
--- NOTE | 2018-09-08 16:40 | NUR ---
Report given to Anya SALAZAR.
--- NOTE | 2018-09-08 16:50 | NUR ---
Called dispatch to request EMS transfer.
[2018-09-08] MEDS ORDERED: fentaNYL INJECTION 100 MCG/2 ML AMP ONE (17:15)
[2018-09-08 17:25] VITALS: BP 129/65
[2018-09-08] MEDS ORDERED: fentaNYL INJECTION 100 MCG/2 ML AMP IVP PRN (17:30)
== END 2018-09-08 17:25 | disposition short-term general hospital (02) ==
LOC: EDUNIT# 12:55 → ER FS 12:57
DX: J18.9 Pneumonia, unspecified organism (principal); J44.0 Chronic obstructive pulmonary disease with (acute) lower respiratory infection; J44.1 Chronic obstructive pulmonary disease with (acute) exacerbation; J96.10 Chronic respiratory failure, unspecified whether with hypoxia or hypercapnia; G43.909 Migraine, unspecified, not intractable, without status migrainosus; K21.9 Gastro-esophageal reflux disease without esophagitis; E11.9 Type 2 diabetes mellitus without complications; Z88.1 Allergy status to other antibiotic agents; Z88.0 Allergy status to penicillin; Z99.81 Dependence on supplemental oxygen
CPT/HCPCS: 36415; 71045; 80053; 81000; 82805; 83605; 83880; 84484; 85007; 85027; 85379; 87040; 94640; 96365; 96375; 96376

== ENCOUNTER 2018-11-02 07:52 | Emergency (ER) | payer MEDICARE, OTHER ==
[~2018-11-02] VITALS: Ht 167 cm; Wt 88.2 kg
[~2018-11-02 07:52] MED LIST changes: +LEVO750T39
[2018-11-02] MEDS ORDERED: RT-ALBUTEROL SULF 2.5 MG/3 ML PRE-MIX VIAL INH ONE (08:00)
--- NOTE | 2018-11-02 08:07 | ED Respiratory ---
General Chief Complaint: Respiratory Problems Stated Complaint: SOB Source: patient History of Present Illness Date Seen by Provider: Nov 02, 2018 Time Seen by Provider: 08:04 Initial Comments 73 yo male with oxygen dependent COPD also hx PE was inpt at [facility] for much of August apparently has had pseudomonas on sputum cultures says he saw pulm ~1week ago and was prescribed nebulized Tobra just got it and did 2nd dose, feels it made him more SOB started 9 hours ago with cough with some green sputum then got SOB 7 hrs ago, says struggling since brought by EMS received duoneb en route arrives with nasal oxygen 5l sat 87 mod resp distress lots of diffuse exp wheezing and tight Allergies and Home Medications Allergies Coded Allergies: Penicillins (Verified Allergy, Unknown, 11/02/18) meropenem (Unverified Allergy, Unknown, 09/08/18) aztreonam (Unverified Adverse Reaction, Unknown, 08/20/18) cefepime (Unverified Adverse Reaction, Unknown, 09/08/18) piperacillin (Unverified Adverse Reaction, Unknown, 08/20/18) tazobactam (Unverified Adverse Reaction, Unknown, 08/20/18) Patient Home Medication List Home Medication List Reviewed: Yes Review of Systems Review of Systems Constitutional: No fever EENTM: no symptoms reported Respiratory: cough, short of breath, wheezing Cardiovascular: no symptoms reported Gastrointestinal: No abdominal pain, No diarrhea, No vomiting Genitourinary: no symptoms reported Musculoskeletal: no symptoms reported Past Yqximsh-Fmnhgy-Mducct Hx Patient Social History Former Smoker, Quit: Feb 20, 2001 2nd Hand Smoke Exposure: No Recent Hopitalizations: No Immunizations Up To Date Tetanus Booster (TDap): Less than 5yrs Date of Pneumonia Vaccine: May 29, 2014 Date of Influenza Vaccine: Nov 26, 2017 Seasonal Allergies Seasonal Allergies: No Past Medical History Surgeries: Yes (EGD, Colonoscopy, RMVL lung xcp tot pneumonectomy sleeve lobectomy) Respiratory: Yes (O depend., Pseudomonas in lungs by hx, chronic resp failure) Pneumonia, COPD Cardiac: Yes (Tachycardia, Ablation Ventricular Arrhythmia) Irregular Heartbeat Neurological: Yes Headaches /Migraines Genitourinary: Yes (Hx hematuria) Gastrointestinal: Yes Gastroesophageal Reflux, Esophagitis Musculoskeletal: No Endocrine: Yes (Winslow's syndrome, Type 2 DM, ) Diabetes, Non-Insulin dep HEENT: No Cancer: No Psychosocial: No Integumentary: No Blood Disorders: Yes (Anemia) Physical Exam Vital Signs - First Documented 11/02/18 08:02 Temp 36.7 Pulse 112 Resp 23 B/P (MAP) 159/87 (111) Pulse Ox 93 O2 Flow Rate 5.00 Capillary Refill : Height: 5'6.00" Weight: 183lbs. oz. 83.841723ph; BMI Method:Stated General Appearance: mild distress Eyes: Bilateral Eye Normal Inspection, Bilateral Eye PERRL, Bilateral Eye EOMI Neck: supple Respiratory: respiratory distress, decreased breath sounds, rhonchi, wheezing, expiration Cardiovascular: normal peripheral pulses, regular rate, rhythm Gastrointestinal: normal bowel sounds, non tender Extremities: non-tender, no pedal edema Focused Exam Lactate Level 11/02/18 08:17: Lactic Acid Level 0.77 Lactic Acid Level Laboratory Tests Test 11/02/18 08:17 Lactic Acid Level 0.77 MMOL/L (0.50-2.00) Progress/Results/Core Measures Suspected Sepsis Recent Fever Within 48 Hours: No Infection Criteria Present: Suspected New Infection Within 3hrs of presentation: Admin ABX, Blood cultures prior to ABX's, Lactate level SIRS Temperature: Pulse: Respiratory Rate: Laboratory Tests 11/02/18 08:17: White Blood Count 21.7H Blood Pressure / Mean: 11/02/18 08:17: Lactic Acid Level 0.77 Laboratory Tests 11/02/18 08:17: Creatinine 0.87, Platelet Count 321, Total Bilirubin 0.3 Results/Orders Lab Results Laboratory Tests Test 11/02/18 08:17 11/02/18 08:35 Range/Units White Blood Count 21.7 H 4.3-11.0 10^3/uL Red Blood Count 4.65 4.35-5.85 10^6/uL Hemoglobin 12.1 L 13.3-17.7 G/DL Hematocrit 40 40-54 % Mean Corpuscular Volume 87 80-99 FL Mean Corpuscular Hemoglobin 26 25-34 PG Mean Corpuscular Hemoglobin Concent 30 L 32-36 G/DL Red Cell Distribution Width 14.9 H 10.0-14.5 % Platelet Count 321 130-400 10^3/uL Mean Platelet Volume 10.0 7.4-10.4 FL Neutrophils (%) (Auto) 82 H 42-75 % Lymphocytes (%) (Auto) 9 L 12-44 % Monocytes (%) (Auto) 6 0-12 % Eosinophils (%) (Auto) 2 0-10 % Basophils (%) (Auto) 0 0-10 % Neutrophils # (Auto) 17.9 H 1.8-7.8 X 10^3 Lymphocytes # (Auto) 1.9 1.0-4.0 X 10^3 Monocytes # (Auto) 1.3 H 0.0-1.0 X 10^3 Eosinophils # (Auto) 0.5 H 0.0-0.3 10^3/uL Basophils # (Auto) 0.1 0.0-0.1 10^3/uL Neutrophils % (Manual) 77 % Lymphocytes % (Manual) 13 % Monocytes % (Manual) 6 % Eosinophils % (Manual) 2 % Basophils % (Manual) 1 % Band Neutrophils 1 % Blood Morphology Comment NORMAL D-Dimer 0.56 H 0.00-0.49 UG/ML Sodium Level 140 135-145 MMOL/L Potassium Level 3.8 3.6-5.0 MMOL/L Chloride Level 98 98-107 MMOL/L Carbon Dioxide Level 29 21-32 MMOL/L Anion Gap 13 5-14 MMOL/L Blood Urea Nitrogen 12 7-18 MG/DL Creatinine 0.87 0.60-1.30 MG/DL Estimat Glomerular Filtration Rate > 60 BUN/Creatinine Ratio 14 Glucose Level 167 H 70-105 MG/DL Lactic Acid Level 0.77 0.50-2.00 MMOL/L Calcium Level 9.9 8.5-10.1 MG/DL Corrected Calcium 9.9 8.5-10.1 MG/DL Total Bilirubin 0.3 0.1-1.0 MG/DL Aspartate Amino Transf (AST/SGOT) 14 5-34 U/L Alanine Aminotransferase (ALT/SGPT) 16 0-55 U/L Alkaline Phosphatase 74 40-136 U/L Total Protein 7.9 6.4-8.2 GM/DL Albumin 4.0 3.2-4.5 GM/DL Blood Gas Puncture Site L RAD Blood Gas Patient Temperature 98.1 Arterial Blood pH 7.36 L 7.37-7.43 Arterial Blood Partial Pressure CO2 55 H 35-45 MMHG Arterial Blood Partial Pressure O2 78 L 79-93 MMHG Arterial Blood HCO3 31 H 23-27 MMOL/L Arterial Blood Total CO2 32.8 H 21.0-31.0 MMOL/L Arterial Blood Oxygen Saturation 95 94-100 % Arterial Blood Base Excess 4.4 H -2.5-2.5 MMOL/L Toni Test YES-POS Blood Gas Ventilator Setting NO Blood Gas Inspired Oxygen 4L My Orders Orders - JOVI KHANNA MD Iv Heplock-Insert (Order) (11/02/18 07:57) Oxygen-Administer (11/02/18 07:57) Cbc With Automated Diff (11/02/18 07:57) Comprehensive Metabolic Panel (11/02/18 07:57) Blood Culture (11/02/18 07:57) Chest 1 View Ap/Pa Only (11/02/18 07:57) Ekg Tracing (11/02/18 07:57) O2 (11/02/18 07:57) Ed Iv/Invasive Line Start (11/02/18 07:57) Monitor-Rhythm Ecg Trace Only (11/02/18 07:57) Lactic Acid Analyzer (11/02/18 07:57) Albuterol Pre-Mix Nebs (Rt) (Proventil (11/02/18 08:00) Svn Small Volume Nebulizer (11/02/18 07:57) Arterial Blood Gas (11/02/18 07:57) Sputum Culture (11/02/18 07:57) Methylprednisolone Sod Succ (Solu-Medrol (11/02/18 08:15) Fibrin Degradation Products (11/02/18 08:13) Manual Differential (11/02/18 08:17) Arterial Blood Gas (11/02/18 08:40) Levofloxacin 750 Mg/150 Ml Iv (Levaquin (11/02/18 08:45) Medications Given in ED Current Medications Medications Dose Ordered Sig/Rae Route Start Time Stop Time Status Last Admin Dose Admin Albuterol Sulfate 2.5 mg ONCE ONCE INH 11/02/18 08:00 11/02/18 08:04 DC 11/02/18 08:40 2.5 MG Methylprednisolone Sodium Succinate 125 mg ONCE ONCE IVP 11/02/18 08:15 11/02/18 08:16 DC 11/02/18 08:40 125 MG Vital Signs/I&O 9/13/19 08:02 Temp 36.7 Pulse 112 Resp 23 B/P (MAP) 159/87 (111) Pulse Ox 93 O2 Flow Rate 5.00 Capillary Refill : Progress Note : Progress Note CXR bilat infiltrates no old films accessible radiology now reads - chronic densities both lower lungs new left upper infiltrate EKG sinus tach @ 102 no acute changes Hb 12.1 WBC 21,700 d dimer 0.56 (-0.49) lactate 0.77 ABG pH 7.36 pCO2 55 pO2 78 5l NC have initiated transfer process with call to [facility] pt requests transfer to [facility] if possible discussed with transfer physician Dr. Sameera Eller pt accepted to transfer to [facility] ECG Initial ECG Impression Date: Nov 02, 2018 Initial ECG Impression Time: 08:44 Initial ECG Rhythm: Normal Sinus Initial ECG Intervals: Normal Initial ECG Impression: Normal Comment sinus tach 102 no acute changes Departure Impression Primary Impression: Pneumonia Qualified Codes: J18.9 - Pneumonia, unspecified organism Additional Impression: Respiratory insufficiency Disposition: 02 XFER SHT-TRM HOSP Condition: Stable Transfer Time Spoke to Accepting Phy: 09:23 Transfer Progress Notes ABG noted above pt still with rhonchi and wheezing but stable Transfer Time: 09:23 Transfer Facility: [facility] requested Method of Transfer: EMS Departure-Patient Inst. Referrals: JOVANNA VALIENTE MD (PCP/Family) Primary Care Physician JOVI KHANNA MD Nov 02, 2018 08:07
[2018-11-02] MEDS ORDERED: methylPREDNISolone 125 MG (Solu-MEDROL) VIAL IVP ONE (08:15)
[2018-11-02 08:28] LABS: HEMATOCRIT 40 % (40-54); HEMOGLOBIN 12.1 G/DL (13.3-17.7); MEAN CORPUSCULAR HEMOGLOBIN 26 PG (25-34); MEAN CORPUSCULAR VOLUME 87 FL (80-99); WHITE BLOOD COUNT 21.7 10^3/uL (4.3-11.0)
[2018-11-02 08:29] LABS: BASOPHILS # (AUTO) 0.1 10^3/uL (0.0-0.1); BASOPHILS % (AUTO) 0 % (0-10); EOSINOPHILS # (AUTO) 0.5 10^3/uL (0.0-0.3); EOSINOPHILS % (AUTO) 2 % (0-10); LYMPHOCYTES # (AUTO) 1.9 X 10^3 (1.0-4.0); LYMPHOCYTES % (AUTO) 9 % (12-44); MEAN CORPUSCULAR HGB CONC 30 G/DL (32-36); MONOCYTES # (AUTO) 1.3 X 10^3 (0.0-1.0); MONOCYTES % (AUTO) 6 % (0-12); NEUTROPHILS # (AUTO) 17.9 X 10^3 (1.8-7.8); NEUTROPHILS % (AUTO) 82 % (42-75); PLATELET COUNT 321 10^3/uL (130-400); RED CELL DISTRIBUTION WIDTH 14.9 % (10.0-14.5)
--- NOTE | 2018-11-02 08:39 | Diagnostic Imaging Report ---
INDICATION: Wheezing and shortness of air. Time of exam: 8:10 AM Correlation is made with prior chest from 09/08/2018. Right chest wall port has tip overlying the SVC right atrial junction. The heart size is stable. Basilar parenchymal densities are similar to the prior examination and may be chronic. There is some new infiltrate in the left upper lobe since prior study. No significant effusion or pneumothorax is seen. IMPRESSION: Chronic basilar parenchymal changes, with new infiltrate left upper lobe since exam from 09/08/2018. Dictated by: Dictated on workstation # [id number]
[2018-11-02 08:41] LABS: BAND NEUTROPHILS 1 %; LYMPHOCYTES % (MANUAL) 13 %; MONOCYTES % (MANUAL) 6 %; NEUTROPHILS % (MANUAL) 77 %
[2018-11-02 08:42] LABS: ABG PH 7.36 (7.37-7.43)
[2018-11-02 08:42] LABS: BASOPHILS % (MANUAL) 1 %; EOSINOPHILS % (MANUAL) 2 %; RBC MORPH NORMAL
[2018-11-02 08:43] LABS: ABG BASE EXCESS 4.4 MMOL/L (-2.5-2.5); ABG OXYGEN SATURATION 95 % (94-100); ABG PCO2 55 MMHG (35-45); ABG PO2 78 MMHG (79-93); ABG TCO2 32.8 MMOL/L (21.0-31.0); ALLENS TEST YES-POS; INSPIRED O2 4L; VENTILATOR NO
[2018-11-02 08:44] LABS: PATIENT TEMP 98.1
[2018-11-02 08:45] LABS: SODIUM 140 MMOL/L (135-145)
[2018-11-02] MEDS ORDERED: LEVOFLOXACIN 750 MG/150 ML IV 150 ML IV ONE (08:45)
[2018-11-02 08:46] LABS: ALANINE AMINOTRANSFERASE 16 U/L (0-55); ALKALINE PHOSPHATASE 74 U/L (40-136); BILIRUBIN,TOTAL 0.3 MG/DL (0.1-1.0); BUN/CREATININE RATIO 14; CALCIUM 9.9 MG/DL (8.5-10.1); CARBON DIOXIDE 29 MMOL/L (21-32); CHLORIDE 98 MMOL/L (98-107); CREATININE SERUM 0.87 MG/DL (0.60-1.30); GFR ESTIMATED > 60; GLUCOSE 167 MG/DL (70-105); POTASSIUM 3.8 MMOL/L (3.6-5.0); TOTAL PROTEIN 7.9 GM/DL (6.4-8.2)
[2018-11-02 10:08] VITALS: BP 138/68
== END 2018-11-02 10:15 | disposition short-term general hospital (02) ==
LOC: EDUNIT# 07:52 → ER FS 07:53
DX: J18.9 Pneumonia, unspecified organism (principal); J44.9 Chronic obstructive pulmonary disease, unspecified; E11.9 Type 2 diabetes mellitus without complications; G43.909 Migraine, unspecified, not intractable, without status migrainosus; D64.9 Anemia, unspecified; K21.0 Gastro-esophageal reflux disease with esophagitis; Z99.81 Dependence on supplemental oxygen; Z86.711 Personal history of pulmonary embolism; Z88.0 Allergy status to penicillin; Z88.1 Allergy status to other antibiotic agents; Z88.8 Allergy status to other drugs, medicaments and biological substances; Z87.891 Personal history of nicotine dependence; Z87.09 Personal history of other diseases of the respiratory system
CPT/HCPCS: 36415; 71045; 80053; 82805; 83605; 85007; 85027; 85379; 87040; 93005; 93041; 94640

== ENCOUNTER 2020-04-03 15:48 | Emergency (ER) | payer MEDICARE, OTHER ==
[~2020-04-03] VITALS: Ht 167.7 cm; Wt 87.0 kg
[~2020-04-03 15:48] MED LIST changes: +SERT-413; -SERT50TA9
[2020-04-03] MEDS ORDERED: NS IV 1000 ML 1,000 ML IV SCH (16:15)
[2020-04-03] MEDS ORDERED: CEFEPIME INJECTION 1,000 MG in WATER (STERILE) FOR INJECTION 10 ML IV ONE (16:15)
[2020-04-03 16:19] LABS: BASOPHILS % (AUTO) 0 % (0-10); EOSINOPHILS % (AUTO) 0 % (0-10); HEMATOCRIT 38 % (40-54); HEMOGLOBIN 11.2 G/DL (13.3-17.7); LYMPHOCYTES # (AUTO) 0.4 X 10^3 (1.0-4.0); LYMPHOCYTES % (AUTO) 2 % (12-44); MEAN CORPUSCULAR HEMOGLOBIN 26 PG (25-34); MEAN CORPUSCULAR HGB CONC 30 G/DL (32-36); MEAN CORPUSCULAR VOLUME 87 FL (80-99); MEAN PLATELET VOLUME 9.7 FL (7.4-10.4); MONOCYTES % (AUTO) 2 % (0-12); NEUTROPHILS # (AUTO) 24.3 X 10^3 (1.8-7.8); NEUTROPHILS % (AUTO) 96 % (42-75); PLATELET COUNT 461 10^3/uL (130-400); WHITE BLOOD COUNT 25.4 10^3/uL (4.3-11.0)
[2020-04-03 16:20] LABS: MONOCYTES # (AUTO) 0.5 X 10^3 (0.0-1.0)
[2020-04-03 16:42] LABS: ALKALINE PHOSPHATASE 98 U/L (40-136); BILIRUBIN,TOTAL < 0.2 MG/DL (0.1-1.0); BUN/CREATININE RATIO 20; CALCIUM 9.1 MG/DL (8.5-10.1); CARBON DIOXIDE 30 MMOL/L (21-32); CHLORIDE 97 MMOL/L (98-107); CREATININE SERUM 0.83 MG/DL (0.60-1.30); GFR ESTIMATED > 60; GLUCOSE 267 MG/DL (70-105); POTASSIUM 4.4 MMOL/L (3.6-5.0); SODIUM 135 MMOL/L (135-145)
[2020-04-03 16:43] LABS: ALANINE AMINOTRANSFERASE 16 U/L (0-55); ALBUMIN 3.4 GM/DL (3.2-4.5); TOTAL PROTEIN 7.3 GM/DL (6.4-8.2)
--- NOTE | 2020-04-03 16:46 | Diagnostic Imaging Report ---
EXAMINATION: Chest radiograph, portable AP view. DATE: 04/03/2020 4:39 PM INDICATION: 75-year-old male, chronic shortness of breath. COMPARISON: November 02, 2018. FINDINGS: There is a right-sided port catheter with tip near the level of the cavoatrial junction. Stable overall appearance of the cardiomediastinal silhouette. There is no identified pneumothorax. There are mid and lower lung zone predominant lung opacities with unchanged overall appearance since the comparison study. IMPRESSION: 1. Grossly unchanged mid and lower lung zone predominant bilateral lung consolidation. At least significant components of the consolidation likely reflect chronic lung changes. There does appear to be increased alveolar consolidation in the right lung base since initial prior chest radiographs on April 10, 2018. This is nonspecific and could relate to progression of chronic lung changes, atelectasis, infiltrate, and/or small right pleural effusion. Dictated by: Dictated on workstation # [id number]
[2020-04-03 16:48] LABS: EOSINOPHILS % (MANUAL) 1 %; LYMPHOCYTES % (MANUAL) 2 %; MONOCYTES % (MANUAL) 2 %; NEUTROPHILS % (MANUAL) 95 %; TOXIC GRANULATION/VACUOLAZATIO 4+
[2020-04-03 16:59] LABS: ABG PCO2 53 MMHG (35-45); ABG PH 7.42 (7.37-7.43); ABG PO2 90 MMHG (79-93)
[2020-04-03 17:00] LABS: ABG BASE EXCESS 8.4 MMOL/L (-2.5-2.5); ABG OXYGEN SATURATION 97 % (94-100); ALLENS TEST NEGATIVE; PATIENT TEMP 36.6; VENTILATOR NO
[2020-04-03 17:08] LABS: INSPIRED O2 NASAL CANNULA
[2020-04-03] MEDS ORDERED: ACETAMINOPHEN 325 MG TABLET ONE (17:31)
[2020-04-03] MEDS ORDERED: ACETAMINOPHEN 325 MG TABLET PO ONE (17:45)
[2020-04-03] MEDS ORDERED: VANCOMYCIN INJECTION 1,000 MG in NS (IVPB) 250 ML IV ONE (18:00)
[2020-04-03] MEDS ORDERED: FUROSEMIDE 40 MG/4 ML INJ (LASIX) IVP ONE (18:00)
--- NOTE | 2020-04-03 18:06 | ED General ---
General Chief Complaint: Respiratory Problems Stated Complaint: SOA Nursing Triage Note: Patient presents to the ED via EMS with c/o of shortness of breath. EMS reports that the patient is currently on Levaquin and prednisone for pneumonia but has become more short of breath. The patient states that he talked to his physiologist and was told to come to the ED for evaluation. He reports he has been on antibiotics and prednisone for lung infection and it has not improved. He stated, "I haven't been able to get ahead of it". He also reports that he had his first COVID vaccine a couple weeks ago. Nursing Sepsis Screen: Possible Sepsis Risk Source of Information: Patient History of Present Illness Date Seen by Provider: Apr 03, 2020 Time Seen by Provider: 16:30 Initial Comments Patient is a 75-year-old male with history of COPD who was supplemental O2 dependent on 4 L who presents with productive cough, chills, generalized weakness and increased shortness of air. Patient had prescription of prednisone and Levaquin called in by his physiologist 4 days ago. He is currently taking prednisone and Levaquin. He reports no improvement but has continued to have chills and green productive sputum. He also reports generalized fatigue and shortness of breath with mild exertion and conversation. He denies chest pain, abdominal pain, nausea vomiting, dizziness lightheadedness. Increased leg pain or swelling. No history of DVT,, PE, CAD or congestive heart failure. No other acute symptoms or complaints. Timing/Duration: 1 Week Severity: Moderate Modifying Factors: improves with Movement Associated Systoms: Other Allergies and Home Medications Allergies Coded Allergies: Penicillins (Verified Allergy, Unknown, 11/02/18) meropenem (Unverified Allergy, Unknown, 09/08/18) aztreonam (Unverified Adverse Reaction, Unknown, 08/20/18) cefepime (Unverified Adverse Reaction, Unknown, 09/08/18) piperacillin (Unverified Adverse Reaction, Unknown, 08/20/18) tazobactam (Unverified Adverse Reaction, Unknown, 08/20/18) Patient Home Medication List Home Medication List Reviewed: Yes Review of Systems Review of Systems Constitutional: see HPI EENTM: see HPI Respiratory: see HPI Cardiovascular: see HPI Gastrointestinal: see HPI Genitourinary: see HPI Musculoskeletal: see HPI Skin: see HPI Hematologic/Lymphatic: See HPI Immunological/Allergic: see HPI All Other Systems Reviewed Negative Unless Noted: Yes Past Nkdfnia-Elbhte-Hxpael Hx Past Med/Social Hx: Reviewed Nursing Past Med/Soc Hx Patient Social History Alcohol Use: Denies Use Smoking Status: Former Smoker Former Smoker, Quit: Feb 20, 2001 2nd Hand Smoke Exposure: No Recent Infectious Disease Expo: No Recent Hopitalizations: No Immunizations Up To Date Tetanus Booster (TDap): Less than 5yrs Date of Pneumonia Vaccine: May 29, 2014 Date of Influenza Vaccine: Nov 26, 2017 Seasonal Allergies Seasonal Allergies: No Past Medical History Surgeries: Yes (EGD, Colonoscopy, RMVL lung xcp tot pneumonectomy sleeve lobectomy) Respiratory: Yes (O depend., Pseudomonas in lungs by hx, chronic resp failure) Pneumonia, COPD Cardiac: Yes (Tachycardia, Ablation Ventricular Arrhythmia) Irregular Heartbeat Neurological: Yes Headaches /Migraines Genitourinary: Yes (Hx hematuria) Gastrointestinal: Yes Gastroesophageal Reflux, Esophagitis Musculoskeletal: No Endocrine: Yes (Kelle's syndrome, Type 2 DM, ) Diabetes, Non-Insulin dep HEENT: No Cancer: No Psychosocial: No Integumentary: No Blood Disorders: Yes (Anemia) Physical Exam Vital Signs Vital Signs - First Documented 04/03/20 15:48 Temp 36.6 Pulse 110 Resp 26 B/P (MAP) 161/78 (105) Pulse Ox 98 O2 Delivery Nasal Cannula O2 Flow Rate 4.00 Capillary Refill : Less Than 3 Seconds Height, Weight, BMI Height: 5'6.00" Weight: 183lbs. oz. 83.916981xr; 30.00 BMI Method:Stated General Appearance: No Apparent Distress Eyes: Bilateral Eye Normal Inspection, Bilateral Eye PERRL, Bilateral Eye EOMI HEENT: PERRL/EOMI, Pharynx Normal Neck: Full Range of Motion, Supple Respiratory: Decreased Breath Sounds, Rales, Other (Tachypnea) Cardiovascular: Regular Rate, Rhythm Gastrointestinal: Normal Bowel Sounds, Soft Back: Normal Inspection, No CVA Tenderness Extremity: Normal Capillary Refill, Normal Inspection, Swelling Skin: Normal Color Focused Exam Sepsis Stage: Ruled Out Lactate Level 04/03/20 16:05: Lactic Acid Level 1.92 Lactic Acid Level Laboratory Tests Test 04/03/20 16:05 Lactic Acid Level 1.92 MMOL/L (0.50-2.00) Progress/Results/Core Measures Suspected Sepsis Recent Fever Within 48 Hours: No Infection Criteria Present: Documented Infection New/Unexplained Altered Menta: No Sepsis Screen: Possible Sepsis Risk SIRS Temperature: Pulse: 110 Respiratory Rate: 26 Laboratory Tests 04/03/20 16:05: White Blood Count 25.4H Blood Pressure 161 /78 Mean: 105 04/03/20 16:05: Lactic Acid Level 1.92 Laboratory Tests 04/03/20 16:05: Creatinine 0.83, INR Comment 1.0, Platelet Count 461H, Total Bilirubin < 0.2 Results/Orders Lab Results Laboratory Tests Test 04/03/20 16:05 04/03/20 16:52 Range/Units White Blood Count 25.4 H 4.3-11.0 10^3/uL Red Blood Count 4.36 4.35-5.85 10^6/uL Hemoglobin 11.2 L 13.3-17.7 G/DL Hematocrit 38 L 40-54 % Mean Corpuscular Volume 87 80-99 FL Mean Corpuscular Hemoglobin 26 25-34 PG Mean Corpuscular Hemoglobin Concent 30 L 32-36 G/DL Red Cell Distribution Width 14.2 10.0-14.5 % Platelet Count 461 H 130-400 10^3/uL Mean Platelet Volume 9.7 7.4-10.4 FL Immature Granulocyte % (Auto) 1 % Neutrophils (%) (Auto) 96 H 42-75 % Lymphocytes (%) (Auto) 2 L 12-44 % Monocytes (%) (Auto) 2 0-12 % Eosinophils (%) (Auto) 0 0-10 % Basophils (%) (Auto) 0 0-10 % Neutrophils # (Auto) 24.3 H 1.8-7.8 X 10^3 Lymphocytes # (Auto) 0.4 L 1.0-4.0 X 10^3 Monocytes # (Auto) 0.5 0.0-1.0 X 10^3 Eosinophils # (Auto) 0.0 0.0-0.3 10^3/uL Basophils # (Auto) 0.0 0.0-0.1 10^3/uL Immature Granulocyte # (Auto) 0.1 0.0-0.1 10^3/uL Neutrophils % (Manual) 95 % Lymphocytes % (Manual) 2 % Monocytes % (Manual) 2 % Eosinophils % (Manual) 1 % Toxic Granulation 4+ Prothrombin Time 13.0 12.2-14.7 SEC INR Comment 1.0 0.8-1.4 Activated Partial Thromboplast Time 27 24-35 SEC Sodium Level 135 135-145 MMOL/L Potassium Level 4.4 3.6-5.0 MMOL/L Chloride Level 97 L 98-107 MMOL/L Carbon Dioxide Level 30 21-32 MMOL/L Anion Gap 8 5-14 MMOL/L Blood Urea Nitrogen 17 7-18 MG/DL Creatinine 0.83 0.60-1.30 MG/DL Estimat Glomerular Filtration Rate > 60 BUN/Creatinine Ratio 20 Glucose Level 267 H 70-105 MG/DL Lactic Acid Level 1.92 0.50-2.00 MMOL/L Calcium Level 9.1 8.5-10.1 MG/DL Corrected Calcium 9.6 8.5-10.1 MG/DL Total Bilirubin < 0.2 0.1-1.0 MG/DL Aspartate Amino Transf (AST/SGOT) 12 5-34 U/L Alanine Aminotransferase (ALT/SGPT) 16 0-55 U/L Alkaline Phosphatase 98 40-136 U/L Troponin I < 0.30 <0.30 NG/ML Pro-B-Type Natriuretic Peptide 164.4 H <75.0 PG/ML Total Protein 7.3 6.4-8.2 GM/DL Albumin 3.4 3.2-4.5 GM/DL Blood Gas Puncture Site LEFT WRIST Blood Gas Patient Temperature 36.6 Arterial Blood pH 7.42 7.37-7.43 Arterial Blood Partial Pressure CO2 53 H 35-45 MMHG Arterial Blood Partial Pressure O2 90 79-93 MMHG Arterial Blood HCO3 34 H 23-27 MMOL/L Arterial Blood Total CO2 36.0 H 21.0-31.0 MMOL/L Arterial Blood Oxygen Saturation 97 94-100 % Arterial Blood Base Excess 8.4 H -2.5-2.5 MMOL/L Toni Test NEGATIVE Blood Gas Ventilator Setting NO Blood Gas Inspired Oxygen NASAL CANNULA My Orders Mary - BRENNEN VERDIN DO Cbc With Automated Diff (04/03/20 16:11) Comprehensive Metabolic Panel (04/03/20 16:11) Blood Culture (04/03/20 16:11) Sputum Culture (04/03/20 16:11) Urinalysis (04/03/20 16:11) Urine Culture (04/03/20 16:11) Protime With Inr (04/03/20 16:11) Partial Thromboplastin Time (04/03/20 16:11) Chest 1 View Ap/Pa Only (04/03/20 16:11) Ed Iv/Invasive Line Start (04/03/20 16:11) Ed Iv/Invasive Line Start (04/03/20 16:11) Vital Signs Adult Sepsis Patie Q15M (04/03/20 16:11) O2 (04/03/20 16:11) Remove Rings In Anticipation O (04/03/20 16:11) Lactic Acid Analyzer (04/03/20 16:11) Ns Iv 1000 Ml (Sodium Chloride 0.9%) (04/03/20 16:15) Cefepime Injection (Maxipime Injection) (04/03/20 16:15) Arterial Blood Gas (04/03/20 16:11) Troponin I Fs (04/03/20 16:11) Probnp Fs (04/03/20 16:11) Manual Differential (04/03/20 16:05) Lactic Acid Analyzer (04/03/20 17:15) Acetaminophen Tablet/Caplet (Tylenol T (04/03/20 17:45) Acetaminophen Tablet/Caplet (Tylenol T (04/03/20 17:31) Furosemide Injection (Lasix Injection) (04/03/20 18:00) Vancomycin Injection (Vancomycin Injecti (04/03/20 18:00) Medications Given in ED Current Medications Medications Dose Ordered Sig/Rae Route Start Time Stop Time Status Last Admin Dose Admin Acetaminophen 650 mg ONCE ONCE PO 04/03/20 17:45 04/03/20 17:46 DC 04/03/20 17:39 650 MG Cefepime HCl 1000 mg/Sterile Water 10 ml @ 200 mls/hr ONCE ONCE IV 04/03/20 16:15 04/03/20 16:17 DC 04/03/20 16:44 200 MLS/HR Vital Signs/I&O 04/03/20 15:48 Temp 36.6 Pulse 110 Resp 26 B/P (MAP) 161/78 (105) Pulse Ox 98 O2 Delivery Nasal Cannula O2 Flow Rate 4.00 Capillary Refill : Less Than 3 Seconds Blood Pressure Mean: 105 Departure Communication (Admissions) Checks x-ray: Bilateral consolidations at bases per radiology report Patient tachypneic with conversational dyspnea with otherwise stable vital signs. Elevated white blood cell count without left shift or elevation in lactic acid. Cefepime and vancomycin given. Solu-Medrol given. Patient accepted to [facility] per Dr. Rawls. Impression Primary Impression: Acute and chronic respiratory failure with hypercapnia Additional Impressions: COPD with exacerbation Pneumonia Disposition: XF [facility] Condition: Stable Transfer Transfer Reason: Exceeds level of care Time Spoke to Accepting Phy: 18:10 Departure-Patient Inst. Referrals: JOVANNA VALIENTE MD (PCP/Family) Primary Care Physician BRENNEN VERDIN DO Apr 03, 2020 18:06
[2020-04-03] MEDS ORDERED: methylPREDNISolone 125 MG (Solu-MEDROL) VIAL IVP ONE (18:15)
[2020-04-03 18:35] LABS: BACTERIA,URINE NEGATIVE /HPF; BILIRUBIN,URINE NEGATIVE (NEGATIVE); CLARITY,URINE CLEAR; COLOR,URINE YELLOW; GLUCOSE, URINE (UA) 2+ (NEGATIVE); KETONES,URINE NEGATIVE (NEGATIVE); LEUKOCYTE ESTERASE ,URINE NEGATIVE (NEGATIVE); NITRITE,URINE NEGATIVE (NEGATIVE); PROTEIN,URINE NEGATIVE (NEGATIVE)
[2020-04-03 21:46] VITALS: BP 122/57
== END 2020-04-03 21:46 | disposition short-term general hospital (02) ==
LOC: EDUNIT# 15:48 → ER FS 15:49
DX: J96.22 Acute and chronic respiratory failure with hypercapnia (principal); J44.1 Chronic obstructive pulmonary disease with (acute) exacerbation; J18.9 Pneumonia, unspecified organism; Z88.0 Allergy status to penicillin; Z88.1 Allergy status to other antibiotic agents; Z88.8 Allergy status to other drugs, medicaments and biological substances; Z87.891 Personal history of nicotine dependence
CPT/HCPCS: 36415; 71045; 80053; 81000; 82805; 83605; 83880; 84484; 85007; 85027; 85610; 85730; 87040; 87088

== ENCOUNTER 2020-07-09 10:58 | Emergency (ER) | payer MEDICARE, OTHER ==
[~2020-07-09] VITALS: Ht 167.8 cm; Wt 78.0 kg
--- NOTE | 2020-07-09 11:07 | ED Dyspnea ---
General Stated Complaint: SOB; COUGH; FEVER History of Present Illness Date Seen by Provider: July 09, 2020 Time Seen by Provider: 11:06 Initial Comments 75-year-old male with history of chronic lung disease presents from the outpatient clinic where he was seen in evaluation by ophthalmology this morning and noted to have a fever of 100.6. Admits that he has been short of air for the past 1 days with increased cough and chest congestion. He sees a mortuary technician at [facility] and he normally is on a regimen of 14 days of inhaled gentamicin monthly and 4 L of oxygen 24 hours daily. He started a prednisone taper earlier this week. Allergies and Home Medications Allergies Coded Allergies: Penicillins (Verified Allergy, Unknown, 11/02/18) meropenem (Unverified Allergy, Unknown, 09/08/18) aztreonam (Unverified Adverse Reaction, Unknown, 08/20/18) cefepime (Unverified Adverse Reaction, Unknown, 09/08/18) piperacillin (Unverified Adverse Reaction, Unknown, 08/20/18) tazobactam (Unverified Adverse Reaction, Unknown, 08/20/18) Patient Home Medication List Home Medication List Reviewed: Yes Review of Systems Review of Systems Constitutional: No chills; fever, malaise EENTM: no symptoms reported Respiratory: cough, short of breath Cardiovascular: No chest pain, No edema, No palpitations, No syncope Gastrointestinal: No abdominal pain, No nausea, No vomiting Genitourinary: No dysuria, No frequency Musculoskeletal: no symptoms reported Skin: No change in color, No rash Past Hqrinut-Kmdcgr-Phfjfj Hx Past Med/Social Hx: Reviewed Nursing Past Med/Soc Hx Patient Social History Former Smoker, Quit: Feb 20, 2001 2nd Hand Smoke Exposure: No Recent Hopitalizations: No Immunizations Up To Date Tetanus Booster (TDap): Less than 5yrs Date of Pneumonia Vaccine: May 29, 2014 Date of Influenza Vaccine: Nov 26, 2017 Seasonal Allergies Seasonal Allergies: No Past Medical History Surgeries: Yes (EGD, Colonoscopy, RMVL lung xcp tot pneumonectomy sleeve lobectomy) Respiratory: Yes (O depend., Pseudomonas in lungs by hx, chronic resp failure) Pneumonia, COPD Cardiac: Yes (Tachycardia, Ablation Ventricular Arrhythmia) Irregular Heartbeat Neurological: Yes Headaches /Migraines Genitourinary: Yes (Hx hematuria) Gastrointestinal: Yes Gastroesophageal Reflux, Esophagitis Musculoskeletal: No Endocrine: Yes (Maxie's syndrome, Type 2 DM, ) Diabetes, Non-Insulin dep HEENT: No Cancer: No Psychosocial: No Integumentary: No Blood Disorders: Yes (Anemia) Physical Exam Vital Signs Vital Signs - First Documented 07/09/20 11:00 Temp 36.6 Pulse 108 Resp 24 B/P (MAP) 141/73 (95) Pulse Ox 95 O2 Delivery Nasal Cannula O2 Flow Rate 5.00 Capillary Refill : Height, Weight, BMI Height: 5'6.00" Weight: 183lbs. oz. 83.910012ys; 30.00 BMI Method:Stated General Appearance: No Apparent Distress, WD/WN HEENT: PERRL/EOMI, Normal ENT Inspection Neck: Non Tender, Supple Respiratory: No Accessory Muscle Use, No Respiratory Distress, Decreased Breath Sounds, Wheezing Cardiovascular: Regular Rate, Rhythm, No Edema, No JVD Gastrointestinal: Normal Bowel Sounds, Non Tender, Soft Extremity: Normal Capillary Refill, Non Tender, No Calf Tenderness Neurologic/Psychiatric: Alert, Oriented x3, No Motor/Sensory Deficits, Normal Mood/Affect Skin: Normal Color, Warm/Dry Focused Exam Lactate Level 07/09/20 11:15: Lactic Acid Level 1.33 Lactic Acid Level Laboratory Tests Test 07/09/20 11:15 Lactic Acid Level 1.33 MMOL/L (0.50-2.00) Progress/Results/Core Measures Results/Orders Lab Results Laboratory Tests Test 07/09/20 11:15 07/09/20 12:16 Range/Units White Blood Count 30.7 *H 4.3-11.0 10^3/uL Red Blood Count 4.77 4.35-5.85 10^6/uL Hemoglobin 11.9 L 13.3-17.7 G/DL Hematocrit 41 40-54 % Mean Corpuscular Volume 85 80-99 FL Mean Corpuscular Hemoglobin 25 25-34 PG Mean Corpuscular Hemoglobin Concent 29 L 32-36 G/DL Red Cell Distribution Width 14.6 H 10.0-14.5 % Platelet Count 359 130-400 10^3/uL Mean Platelet Volume 10.2 7.4-10.4 FL Immature Granulocyte % (Auto) 1 % Neutrophils (%) (Auto) 96 H 42-75 % Lymphocytes (%) (Auto) 2 L 12-44 % Monocytes (%) (Auto) 1 0-12 % Eosinophils (%) (Auto) 0 0-10 % Basophils (%) (Auto) 0 0-10 % Neutrophils # (Auto) 29.5 H 1.8-7.8 X 10^3 Lymphocytes # (Auto) 0.5 L 1.0-4.0 X 10^3 Monocytes # (Auto) 0.4 0.0-1.0 X 10^3 Eosinophils # (Auto) 0.0 0.0-0.3 10^3/uL Basophils # (Auto) 0.1 0.0-0.1 10^3/uL Immature Granulocyte # (Auto) 0.3 H 0.0-0.1 10^3/uL Neutrophils % (Manual) 95 % Lymphocytes % (Manual) 2 % Monocytes % (Manual) 1 % Eosinophils % (Manual) 0 % Basophils % (Manual) 1 % Band Neutrophils 1 % Blood Morphology Comment NORMAL Sodium Level 135 135-145 MMOL/L Potassium Level 4.8 3.6-5.0 MMOL/L Chloride Level 99 98-107 MMOL/L Carbon Dioxide Level 30 21-32 MMOL/L Anion Gap 6 5-14 MMOL/L Blood Urea Nitrogen 21 H 7-18 MG/DL Creatinine 0.84 0.60-1.30 MG/DL Estimat Glomerular Filtration Rate > 60 BUN/Creatinine Ratio 25 Glucose Level 192 H 70-105 MG/DL Lactic Acid Level 1.33 0.50-2.00 MMOL/L Calcium Level 9.5 8.5-10.1 MG/DL Corrected Calcium 9.7 8.5-10.1 MG/DL Total Bilirubin 0.3 0.1-1.0 MG/DL Aspartate Amino Transf (AST/SGOT) 11 5-34 U/L Alanine Aminotransferase (ALT/SGPT) 13 0-55 U/L Alkaline Phosphatase 83 40-136 U/L Total Protein 7.8 6.4-8.2 GM/DL Albumin 3.7 3.2-4.5 GM/DL Urine Color YELLOW Urine Clarity CLEAR Urine pH 6.0 5-9 Urine Specific [place] 1.010 L 1.016-1.022 Urine Protein NEGATIVE NEGATIVE Urine Glucose (UA) NEGATIVE NEGATIVE Urine Ketones NEGATIVE NEGATIVE Urine Nitrite NEGATIVE NEGATIVE Urine Bilirubin NEGATIVE NEGATIVE Urine Urobilinogen 0.2 < = 1.0 MG/DL Urine Leukocyte Esterase NEGATIVE NEGATIVE Urine RBC (Auto) NEGATIVE NEGATIVE Urine RBC RARE /HPF Urine WBC 0-2 /HPF Urine Squamous Epithelial Cells 0-2 /HPF Urine Crystals NONE /LPF Urine Bacteria NEGATIVE /HPF Urine Casts NONE /LPF Urine Mucus SMALL H /LPF Urine Culture Indicated NO My Orders Orders - ROVENSTINE,STAR L DO Cbc With Automated Diff (07/09/20 11:04) Comprehensive Metabolic Panel (07/09/20 11:04) Lactic Acid Analyzer (07/09/20 11:04) Chest Pa/Lat (2 View) (07/09/20 11:04) Ed Iv/Invasive Line Start (07/09/20 11:04) Urinalysis (07/09/20 11:04) Manual Differential (07/09/20 11:15) Albuterol/Ipra Inhalation Soln (Duoneb I (07/09/20 11:45) Methylprednisolone Sod Succ (Solu-Medrol (07/09/20 11:45) Svn Small Volume Nebulizer (07/09/20 11:44) Meropenem (Merrem 1000 Mg) (07/09/20 12:15) Meropenem (Merrem 500 Mg) (07/09/20 12:41) Water (Sterile) For Injection (Sterile W (07/09/20 12:41) Medications Given in ED Current Medications Medications Dose Ordered Sig/Rae Route Start Time Stop Time Status Last Admin Dose Admin Albuterol/ Ipratropium 3 ml ONCE ONCE INH 07/09/20 11:45 07/09/20 11:54 DC 07/09/20 12:17 3 ML Meropenem 1000 mg/ Sterile Water 20 ml @ 240 mls/hr ONCE ONCE IV 07/09/20 12:15 07/09/20 12:50 DC 07/09/20 13:00 240 MLS/HR Methylprednisolone Sodium Succinate 80 mg ONCE ONCE IV 07/09/20 11:45 07/09/20 11:54 DC 07/09/20 12:16 80 MG Vital Signs/I&O 07/09/20 07/09/20 07/09/20 11:00 12:26 12:31 Temp 36.6 36.2 36.2 Pulse 108 86 88 Resp 24 23 19 B/P (MAP) 141/73 (95) 137/72 145/76 Pulse Ox 95 98 98 O2 Delivery Nasal Cannula Nasal Cannula Nasal Cannula O2 Flow Rate 5.00 4.00 5.00 Progress Progress Note : Progress Note Called [facility] and spoke to Dr Kong @ 1203- accepts for admission, advised starting Meropenem and will await opening of a bed Initial ECG Impression Date: July 09, 2020 Initial ECG Impression Time: 11:20 Initial ECG Rate: 99 Initial ECG Rhythm: Normal Sinus Initial ECG Impression: Nonspecific Changes Initial ECG Comparisson: No Previous ECG Available Comment no acute ischemic changes Diagnostic Imaging Diagonstic Imaging: Xray Comments Date of Exam:07/09/20 CHEST PA/LAT (2 VIEW) INDICATION: Chronic lung disease, low-grade fever. COMPARISON: 04/03/2020 TECHNIQUE: 2 radiographs of the chest dated 07/09/2020 FINDINGS: Right-sided Port-A-Cath is again identified. The cardiac silhouette is within normal limits in size. No significant pulmonary vascular congestion. Chronic bilateral interstitial opacities are again noted within the lungs bilaterally. However, more focal infiltrate is noted within the right mid and lower lung. Chronic pleural scarring is again noted without significant pleural effusion. No pneumothorax. Scattered osseous degenerative changes without acute osseous abnormality. IMPRESSION: right midlung and basilar infiltrate superimposed upon advanced chronic interstitial lung disease and chronic obstructive pulmonary disease. Dictated on workstation # [id number] Dict: 07/09/20 1126 Trans: 07/09/20 1133 [id number] Interpreted by: SANTOS AGUILERA MD Electronically signed by: Departure Impression Primary Impression: Pneumonia Qualified Codes: J18.9 - Pneumonia, unspecified organism Additional Impressions: COPD with exacerbation Acute and chronic respiratory failure with hypercapnia Disposition: XFER [facility] Condition: Improved Admissions Time/Decision to Admit Time: 11:45 Transfer Transfer Reason: Exceeds level of care Time Spoke to Accepting Phy: 12:03 Transfer Facility: [facility] Method of Transfer: EMS Departure-Patient Inst. Referrals: JOVANNA VALIENTE MD (PCP/Family) Primary Care Physician STAR LOO DO July 09, 2020 11:07
--- NOTE | 2020-07-09 11:34 | Diagnostic Imaging Report ---
INDICATION: Chronic lung disease, low-grade fever. COMPARISON: 04/03/2020 TECHNIQUE: 2 radiographs of the chest dated 07/09/2020 FINDINGS: Right-sided Port-A-Cath is again identified. The cardiac silhouette is within normal limits in size. No significant pulmonary vascular congestion. Chronic bilateral interstitial opacities are again noted within the lungs bilaterally. However, more focal infiltrate is noted within the right mid and lower lung. Chronic pleural scarring is again noted without significant pleural effusion. No pneumothorax. Scattered osseous degenerative changes without acute osseous abnormality. IMPRESSION: right midlung and basilar infiltrate superimposed upon advanced chronic interstitial lung disease and chronic obstructive pulmonary disease. Dictated by: Dictated on workstation # [id number]
[2020-07-09 11:39] LABS: BASOPHILS # (AUTO) 0.1 10^3/uL (0.0-0.1); BASOPHILS % (AUTO) 0 % (0-10); EOSINOPHILS % (AUTO) 0 % (0-10); HEMATOCRIT 41 % (40-54); HEMOGLOBIN 11.9 G/DL (13.3-17.7); LYMPHOCYTES # (AUTO) 0.5 X 10^3 (1.0-4.0); LYMPHOCYTES % (AUTO) 2 % (12-44); MEAN CORPUSCULAR HEMOGLOBIN 25 PG (25-34); MEAN CORPUSCULAR HGB CONC 29 G/DL (32-36); MEAN CORPUSCULAR VOLUME 85 FL (80-99); MEAN PLATELET VOLUME 10.2 FL (7.4-10.4); MONOCYTES # (AUTO) 0.4 X 10^3 (0.0-1.0); MONOCYTES % (AUTO) 1 % (0-12); NEUTROPHILS # (AUTO) 29.5 X 10^3 (1.8-7.8); NEUTROPHILS % (AUTO) 96 % (42-75); PLATELET COUNT 359 10^3/uL (130-400)
[2020-07-09 11:43] LABS: WHITE BLOOD COUNT 30.7 10^3/uL (4.3-11.0)
[2020-07-09 11:49] LABS: ALANINE AMINOTRANSFERASE 13 U/L (0-55); ALBUMIN 3.7 GM/DL (3.2-4.5); ALKALINE PHOSPHATASE 83 U/L (40-136); BILIRUBIN,TOTAL 0.3 MG/DL (0.1-1.0); BUN/CREATININE RATIO 25; CALCIUM 9.5 MG/DL (8.5-10.1); CARBON DIOXIDE 30 MMOL/L (21-32); CHLORIDE 99 MMOL/L (98-107); CREATININE SERUM 0.84 MG/DL (0.60-1.30); GFR ESTIMATED > 60; GLUCOSE 192 MG/DL (70-105); POTASSIUM 4.8 MMOL/L (3.6-5.0); SODIUM 135 MMOL/L (135-145); TOTAL PROTEIN 7.8 GM/DL (6.4-8.2)
[2020-07-09 11:54] LABS: BAND NEUTROPHILS 1 %; BASOPHILS % (MANUAL) 1 %; EOSINOPHILS % (MANUAL) 0 %; LYMPHOCYTES % (MANUAL) 2 %; MONOCYTES % (MANUAL) 1 %; NEUTROPHILS % (MANUAL) 95 %; RBC MORPH NORMAL
[2020-07-09] MEDS: methylPREDNISolone 40 MG/ML (Solu-MEDROL) VIAL IV ONE (12:16)
[2020-07-09] MEDS: RT-ALBUTEROL/IPRATROPIUM 3 ML (DUONEB) VIAL INH ONE (12:17)
[2020-07-09 12:31] VITALS: BP 145/76
[2020-07-09 12:34] LABS: BACTERIA,URINE NEGATIVE /HPF; BILIRUBIN,URINE NEGATIVE (NEGATIVE); CLARITY,URINE CLEAR; COLOR,URINE YELLOW; GLUCOSE, URINE (UA) NEGATIVE (NEGATIVE); KETONES,URINE NEGATIVE (NEGATIVE); LEUKOCYTE ESTERASE ,URINE NEGATIVE (NEGATIVE); NITRITE,URINE NEGATIVE (NEGATIVE); PROTEIN,URINE NEGATIVE (NEGATIVE); RBC,URINE RARE /HPF; SQUAMOUS EPITHELIAL CELL,UR 0-2 /HPF; WBC,URINE 0-2 /HPF
[2020-07-09] MEDS: MEROPENEM 1,000 MG in WATER (STERILE) FOR INJECTION 20 ML IV ONE (13:00)
[2020-07-09] MEDS: MEROPENEM 500 MG VIAL (MERREM) IV ONE (13:00)
[2020-07-09] MEDS: WATER (STERILE) FOR INJECTION 20 ML ONE (13:01)
== END 2020-07-09 13:20 | disposition short-term general hospital (02) ==
LOC: EDUNIT# 10:58 → ER FS 11:00
DX: J96.22 Acute and chronic respiratory failure with hypercapnia (principal); J44.1 Chronic obstructive pulmonary disease with (acute) exacerbation; J18.9 Pneumonia, unspecified organism; E11.9 Type 2 diabetes mellitus without complications; Z87.891 Personal history of nicotine dependence; Z88.0 Allergy status to penicillin; Z88.1 Allergy status to other antibiotic agents
CPT/HCPCS: 36415; 71046; 80053; 81000; 83605; 85007; 85027; 87040; 94640